=== PATIENT | female | born 1950 | race Caucasian/White ===

== ENCOUNTER 2017-02-25 11:19 | Outpatient (CLI) | payer MEDICARE, OTHER ==
[2017-02-25 11:59] LABS: BASOPHILS % 0.5 (0.0-1.5); EOSINOPHILS % 5.2 % (0.0-6.8); LYMPHOCYTES # 1.5 # k/uL (0.6-4.0); MEAN CORPUSCULAR HEMOGLOBIN 28.8 pg (28.0-34.0); MONOCYTES # 0.6 # k/uL (0.0-0.9); MONOCYTES % 7.4 % (0.0-11.0); NEUTROPHILS # 5.7 # k/uL (1.4-7.7)
[2017-02-25 12:41] LABS: eGFR (African) > 60; eGFR (Non-African) > 60
[2017-02-25 22:31] LABS: TRANSFERRIN 244 mg/dL (200-360)
[2017-02-25 22:41] LABS: SERUM IRON 39 ug/dL (37-145)
== END 2017-02-25 11:20 ==
LOC: LAB 11:19
PROVIDERS: ATTEND Nurse Practitioner
DX: E11.9 Type 2 diabetes mellitus without complications (principal); I10 Essential (primary) hypertension; E78.5 Hyperlipidemia, unspecified; G62.9 Polyneuropathy, unspecified; J45.909 Unspecified asthma, uncomplicated; M54.9 Dorsalgia, unspecified; R25.1 Tremor, unspecified
CPT/HCPCS: 36415; 80053; 82728; 83036; 83540; 83550; 84466; 85025

== ENCOUNTER 2017-03-02 11:24 | Outpatient (CLI) | payer MEDICARE, OTHER ==
[2017-03-02 12:03] LABS: APPEARANCE,URINE Cloudy (CLEAR); COLOR,URINE Yellow (YELLOW); OCCULT BLOOD,URINE Negative (NEGATIVE); PH URINE 5.5 (5.0 - 8.0)
== END 2017-03-02 11:25 ==
LOC: LAB 11:24
PROVIDERS: ATTEND Nurse Practitioner
DX: N39.0 Urinary tract infection, site not specified (principal)
CPT/HCPCS: 81002; 87086

== ENCOUNTER 2017-09-10 14:57 | Outpatient (CLI) | payer MEDICARE, OTHER ==
[2017-09-10 15:19] LABS: BASOPHILS % 0.7 (0.0-1.5); EOSINOPHILS % 4.6 % (0.0-6.8); MEAN CORPUSCULAR HEMOGLOBIN 27.7 pg (28.0-34.0); MEAN CORPUSCULAR VOLUME 87.2 fl (80.0-100.0); MONOCYTES % 5.9 % (0.0-11.0); NEUTROPHILS # 6.3 # k/uL (1.4-7.7)
[2017-09-10 15:50] LABS: eGFR (African) > 60; eGFR (Non-African) > 60
== END 2017-09-10 15:00 ==
LOC: LAB 14:57
PROVIDERS: ATTEND Internal Medicine
DX: L03.115 Cellulitis of right lower limb (principal); I15.9 Secondary hypertension, unspecified
CPT/HCPCS: 36415; 80048; 85025

== ENCOUNTER 2017-09-16 10:09 | Outpatient (CLI) | payer MEDICARE, OTHER ==
[~2017-09-16 10:09] MED LIST: IRON SUCROSE COMPLEX IV SCH; SODIUM CHLORIDE 0.9% IV SCH
[2017-09-16] MEDS ORDERED: SALINE FLUSH 10 ML DISP.SYRIN IVF ONE (11:00)
[2017-09-16] MEDS ORDERED: IRON SUCROSE COMPLEX 20 MG/ML 10ML VIAL IV ONE (11:00)
[2017-09-16] MEDS ORDERED: 0.9 % SODIUM CHLORIDE 100 ML IV.SOLN IV ONE (11:00)
== END 2017-09-16 10:10 ==
LOC: INF 10:09
PROVIDERS: ATTEND Nurse Practitioner
DX: D50.9 Iron deficiency anemia, unspecified (principal)
CPT/HCPCS: 96365; J1756; S1016

== ENCOUNTER 2017-09-23 09:37 | Outpatient (CLI) | payer MEDICARE, OTHER ==
[2017-09-23] MEDS ORDERED: IRON SUCROSE COMPLEX IV SCH (10:00)
[2017-09-23] MEDS ORDERED: SODIUM CHLORIDE 0.9% IV SCH (10:00)
[2017-09-23] MEDS ORDERED: IRON SUCROSE COMPLEX 20 MG/ML 10ML VIAL IV ONE (11:00)
[2017-09-23] MEDS ORDERED: SALINE FLUSH 10 ML DISP.SYRIN IVF ONE (11:00)
[2017-09-23] MEDS ORDERED: 0.9 % SODIUM CHLORIDE 50 ML IV.SOLN IV ONE (11:00)
== END 2017-09-23 09:40 ==
LOC: INF 09:37
PROVIDERS: ATTEND Nurse Practitioner
DX: D50.9 Iron deficiency anemia, unspecified (principal)
CPT/HCPCS: 96365; J1756; S1016

== ENCOUNTER 2017-09-30 10:27 | Outpatient (CLI) | payer MEDICARE, OTHER ==
[2017-09-30] MEDS ORDERED: SODIUM CHLORIDE 0.9% IV SCH (11:00)
[2017-09-30] MEDS ORDERED: IRON SUCROSE COMPLEX IV SCH (11:00)
[2017-09-30] MEDS ORDERED: 0.9 % SODIUM CHLORIDE 100 ML IV.SOLN IV ONE (12:00)
[2017-09-30] MEDS ORDERED: SALINE FLUSH 10 ML DISP.SYRIN IVF ONE (12:00)
[2017-09-30] MEDS ORDERED: IRON SUCROSE COMPLEX 20 MG/ML 10ML VIAL IV ONE (12:00)
== END 2017-09-30 10:30 ==
LOC: INF 10:27
PROVIDERS: ATTEND Nurse Practitioner
DX: D50.9 Iron deficiency anemia, unspecified (principal)
CPT/HCPCS: 96365; J1756; S1016

== ENCOUNTER 2018-03-16 13:50 | Outpatient (CLI) | payer MEDICARE, OTHER ==
[2018-03-16 14:16] LABS: EOSINOPHILS % 9.9 % (0.0-6.8); MEAN CORPUSCULAR HEMOGLOBIN 30.2 pg (28.0-34.0); MEAN CORPUSCULAR VOLUME 94.1 fl (80.0-100.0); MONOCYTES % 5.2 % (0.0-11.0); NEUTROPHILS # 5.9 # k/uL (1.4-7.7)
[2018-03-16 14:49] LABS: eGFR (African) > 60; eGFR (Non-African) > 60
[2018-03-16 23:51] LABS: TRANSFERRIN 254 mg/dL (200-360)
[2018-03-17 00:11] LABS: SERUM IRON 81 ug/dL (37-145)
== END 2018-03-16 13:52 ==
LOC: LAB 13:50
PROVIDERS: ATTEND Nurse Practitioner
DX: E11.9 Type 2 diabetes mellitus without complications (principal); D50.9 Iron deficiency anemia, unspecified; I10 Essential (primary) hypertension; E78.5 Hyperlipidemia, unspecified; G62.9 Polyneuropathy, unspecified; J45.909 Unspecified asthma, uncomplicated; R41.2 Retrograde amnesia
CPT/HCPCS: 36415; 80053; 82728; 83036; 83540; 83550; 84466; 85025

== ENCOUNTER 2018-06-01 12:56 | Outpatient (CLI) | payer MEDICARE, OTHER ==
[2018-06-01 13:28] LABS: BASOPHILS % 0.8 (0.0-1.5); EOSINOPHILS % 9.7 % (0.0-6.8); MEAN CORPUSCULAR HEMOGLOBIN 28.2 pg (28.0-34.0); MEAN CORPUSCULAR VOLUME 89.6 fl (80.0-100.0); MONOCYTES % 4.2 % (0.0-11.0); NEUTROPHILS # 6.7 # k/uL (1.4-7.7)
[2018-06-01 13:58] LABS: APPEARANCE,URINE CLOUDY (CLEAR); COLOR,URINE YELLOW (YELLOW); OCCULT BLOOD,URINE TRACE-INTACT (NEGATIVE); PH URINE 5.5 (5.0 - 8.0); UROBILINOGEN URINE 0.2 Eu (0.2-1.0)
[2018-06-01 14:05] LABS: eGFR (African) > 60; eGFR (Non-African) > 60
[2018-06-03 17:11] LABS: ANTI-PR3 (C-ANCA) <4.0 EU/mL (<4.0)
== END 2018-06-01 12:58 ==
LOC: LAB 12:56
PROVIDERS: ATTEND Dermatology
DX: Z79.899 Other long term (current) drug therapy (principal)
CPT/HCPCS: 36415; 80053; 81002; 82595; 82784; 83516; 84155; 84165; 85025; 85651; 86038; 86140; 86160; 86704; 86706; 86803; 87340

== ENCOUNTER 2018-08-24 15:57 | Emergency (ER) | payer MEDICARE, OTHER ==
--- NOTE | 2018-08-24 16:24 | ED Physician Documentation ---
General Adult - VITAL SIGNS Vital Signs: Vital Signs Temp Pulse Resp BP Pulse Ox 98.6 F 64 16 143/74 99 08/24/18 20:30 08/24/18 20:30 08/24/18 20:30 08/24/18 20:30 08/24/18 20:30 <Hyacinth Abad - Last Filed: 08/25/18 00:14> - HISTORIAN Historian: patient - HPI Chief Complaint: Lower Extremity Problem Additional Information: Patient states that she dislocated her right hip.Patient was leaning over to pull socks up and felt the hip go out. Had hip replace in Dec of this year. Was doing well until about 5-6 weeks dislocated her hip after falling. No numbness ot the leg noted. Onset: minutes Timing: still present Severity: mild Further Comments: yes (Recently finished IV antibiotics for open wounds on her legs.) - ROS CONST: no problems. denies: fever, chills - PAST HX Past History: asthma, other (vasculitis, open wound to the legs, Htn, DM, ) Other History: diabetes Type 2 Surgeries/Procedures: hysterectomy, other (s/r right hip, nerve decompression in giuseppe left foot. 4th right toe amputated. ) - SOCIAL HX Smoking History: non-smoker Alcohol Use: rarely Drug Use: none - FAMILY HX Family History: Yes (brother DM, mother CAD. ) - REVIEWED ASSESSMENTS Nursing Assessment Reviewed: Yes Vitals Reviewed: Yes <Marc Day - Last Filed: 08/25/18 07:01> - PAST HX Allergies/Adverse Reactions: Allergies Allergy/AdvReac Type Severity Reaction Status Date / Time diphenhydramine HCl AdvReac Intermediate Hives Verified 08/24/18 16:48 [From Benadryl] Sulfa (Sulfonamide AdvReac Intermediate Hives Verified 08/24/18 16:48 Antibiotics) Home Medications: Ambulatory Orders Medication Instructions Recorded Aspirin 81 mg PO DAILY u2 11/02/14 Atorvastatin Calcium [Lipitor] 40 mg PO DAILY u2 11/02/14 Furosemide [Lasix] 40 mg PO TUTH9 u2 11/02/14 Gabapentin 1,200 mg PO TID av 11/02/14 Metformin HCl [Glucophage] 1,000 mg PO D #180 u2 11/02/14 Omeprazole 20 mg PO DAILY 11/02/14 Oxycodone HCl/Acetaminophen 1 each PO Q4 PRN u2 11/02/14 [Oxycodone-Acetaminophen 10-325] Potassium Chloride 20 meq PO DAILY u2 11/02/14 Cetirizine HCl [Zyrtec] 10 mg PO D 08/24/18 Diclofenac Sodium 75 mg PO BID 08/24/18 Folic Acid 1 mg PO D 08/24/18 L. Rhamnosus GG/Inulin [Culturelle See Protocol PO D 08/24/18 Capsule] Lisinopril/Hydrochlorothiazide 1 tab PO D 08/24/18 [Zestoretic] Methotrexate [Xatmep] 3 tab PO D 08/24/18 Metoprolol Succinate 50 mg PO D 08/24/18 Oxybutynin Chloride [Ditropan] 5 mg PO BID 08/24/18 Prednisone 50 mg PO D 08/24/18 Pregabalin [Lyrica] 75 mg PO BID 08/24/18 Progress - Progress Progress: 18:30 Having a hard time getting an IV established. 18:45 IV established. Patient was bolused with 750cc NS in preparation of conscious sedation. Patient was started on supplemental oxygen, ward service supervisor to compliance monitor and BP was monitored. Consent form was signed after being advised to the risk and benefits of conscious sedation. Patient was given propofol 20mg every 10 seconds for a total of 120mg for sedation. Hip was flexed to 90 degrees and pulled anteriorly until leg length was equal. Post reduction x-ray showed the hip to be in normal alignment. Patient tolerated procedure, VS remained stable. Splint applied. <Marc Day - Last Filed: 08/25/18 07:01> ED Results Lab/Radiology - Orders Orders: ED Orders Category Date Time Status Place IV Lock 1T Care 08/24/18 16:29 Active RT HIP 2VIEW COMPLETE [RAD] Routine Exams 08/24/18 Completed RT HIP 2VIEW COMPLETE [RAD] Routine Exams 08/24/18 Taken 0.9 % Sodium Chloride [Normal Saline] 1,000 ml Med 08/24/18 18:52 Discontinued IV .STK-MED 0.9 % Sodium Chloride [Normal Saline] 500 ml Med 08/24/18 19:00 Discontinued IV .Q1H Ketorolac Tromethamine [Toradol] Med 08/24/18 16:29 Discontinued 30 mg IVP NOW ONE Propofol [Diprivan] Med 08/24/18 19:54 Discontinued 40 mg IV NOW ONE Propofol [Diprivan] Med 08/24/18 19:16 Discontinued 80 mg IV NOW ONE <AbadHyacinth - Last Filed: 08/25/18 00:14> - Radiology Radiology Impressions: Right hip History: Dislocation Two views of the right hip were obtained which demonstrate posterior and super ior dislocation of the right hip prosthesis. The prosthetic components remain intact and no fracture is noted. Impression: Posterior and superior dislocation of the right hip prosthesis. Right hip 2 views Date of Exam: August 24, 2018. History: POST REDUCTION, DISLOCATION (Hx) / ITS.REASON dislocation Findings: Comparison with the earlier study demonstrates reduction of the right hip dislocation. The femoral component now appears positioned within the acetabular Impression: Reduction of right hip dislocation. <DayMarc - Last Filed: 08/25/18 07:01> General Adult Physical Exam - PHYSICAL EXAM GENERAL APPEARANCE: mild distress EENT: eye inspection normal, ENT inspection normal NECK: normal inspection. No: lymphadenopathy RESPIRATORY: no resp distress, chest non-tender, breath sounds normal. No: wheezes, rales, rhonchi CVS: reg rate & rhythm, heart sounds normal, equal pulses, no murmur SKIN: warm/dry, normal color EXTREMITIES: other (RLE shortened some. posterior fullness to the hip. Post reduction hip was normal to palpation. ) NEURO: oriented X3, CN's nml as tested, motor nml, sensation nml, cognition normal <DayMarc - Last Filed: 08/25/18 07:01> Discharge <Hyacinth Abad - Last Filed: 08/25/18 00:14> Decision to Admit: NO Date of Decison to Admit: 08/24/18 Decision Time: 18:29 <DayMarc - Last Filed: 08/25/18 07:01> Clincal Impression: Hip dislocation, right Qualifiers: Encounter type: initial encounter Qualified Code(s): S73.004A - Unspecified dislocation of right hip, initial encounter Referrals: Felicitas Washington FNP [Primary Care Provider] - 2 Days Additional Instructions: Wear brace. Contact orthopedic physician about further care. Avoid bring leg cross your midline. Condition: Stable Disposition: 01 HOME, SELF-CARE
[2018-08-24] MEDS ORDERED: KETOROLAC TROMETHAMINE 30 MG/1ML VIAL IVP ONE (16:29)
--- NOTE | 2018-08-24 17:50 | Diagnostic Imaging Report ---
BRITTNEY BLAIR [facility] [address] [facility] [address] [address] Report Submission Date: Aug 24, 2018 5:36:59 PM CDT Patient Study Name: HUMAIRA ARREDONDO Date: Aug 24, 2018 5:06:56 PM CDT Modality Type: DX Gender: F Description: PELVIS : 52 Institution: [facility] Physician: BRITTNEY BLAIR Right hip History: Dislocation Two views of the right hip were obtained which demonstrate posterior and superior dislocation of the right hip prosthesis. The prosthetic components remain intact and no fracture is noted. Impression: Posterior and superior dislocation of the right hip prosthesis. Electronically signed on Aug 24, 2018 5:36:59 PM CDT by: Naida WILLSON
[2018-08-24] MEDS ORDERED: 0.9 % SODIUM CHLORIDE 1,000 ML IV ONE (18:52)
[2018-08-24] MEDS ORDERED: 0.9 % SODIUM CHLORIDE 500 ML IV SCH (19:00)
[2018-08-24] MEDS ORDERED: PROPOFOL 200 MG/20 ML VIAL IV ONE ×2 (19:16→19:54)
[2018-08-24 21:05] VITALS: BP 143/74
--- NOTE | 2018-08-25 06:57 | Diagnostic Imaging Report ---
BRITTNEY BLAIR [facility] [address] [facility] [address] [address] Report Submission Date: Aug 24, 2018 8:07:52 PM CDT Patient Study Name: HUMAIRA ARREDONDO Date: Aug 24, 2018 7:47:15 PM CDT Modality Type: DX Gender: F Description: PELVIS : 52 Institution: [facility] Physician: BRITTNEY BLAIR Right hip 2 views Date of Exam: August 24, 2018. History: POST REDUCTION, DISLOCATION (Hx) / ITS.REASON dislocation Findings: Comparison with the earlier study demonstrates reduction of the right hip dislocation. The femoral component now appears positioned within the acetabular Impression: Reduction of right hip dislocation. Electronically signed on Aug 24, 2018 8:07:52 PM CDT by: Tia WILLSON
== END 2018-08-24 20:30 | disposition home or self-care (01) ==
LOC: ED 15:57
DX: S73.004A Unspecified dislocation of right hip, initial encounter (principal); Z96.641 Presence of right artificial hip joint; X58.XXXA Exposure to other specified factors, initial encounter; Y92.9 Unspecified place or not applicable; Y93.9 Activity, unspecified; Y99.9 Unspecified external cause status
CPT/HCPCS: 73502; 96365; 96375; 99284; 99285; J2704; J7030; 27266; S1016

== ENCOUNTER 2018-09-23 10:07 | Outpatient (CLI) | payer MEDICARE, OTHER ==
[2018-09-23] MEDS ORDERED: IRON SUCROSE COMPLEX 300 MG in 0.9 % SODIUM CHLORIDE 250 ML IV ONE (11:00)
[2018-09-23] MEDS ORDERED: SALINE FLUSH 10 ML DISP.SYRIN IVF ONE (12:50)
[2018-09-23] MEDS ORDERED: 0.9 % SODIUM CHLORIDE 250 ML IV.SOLN IV ONE (12:50)
[2018-09-23] MEDS ORDERED: IRON SUCROSE COMPLEX 20 MG/ML 10ML VIAL IV ONE (12:50)
== END 2018-09-23 12:00 ==
LOC: INF 10:07
PROVIDERS: ATTEND Nurse Practitioner
DX: D50.9 Iron deficiency anemia, unspecified (principal); I10 Essential (primary) hypertension; R60.9 Edema, unspecified; K21.0 Gastro-esophageal reflux disease with esophagitis; E78.5 Hyperlipidemia, unspecified; G62.9 Polyneuropathy, unspecified
CPT/HCPCS: J1756; J7050; 96365; S1016

== ENCOUNTER 2018-10-01 09:18 | Outpatient (CLI) | payer MEDICARE, OTHER ==
[2018-10-01] MEDS ORDERED: SALINE FLUSH 10 ML DISP.SYRIN IVF ONE ×2 (10:00)
[2018-10-01] MEDS ORDERED: IRON SUCROSE COMPLEX 20 MG/ML 5ML VIAL IV ONE ×5 (10:00→11:00)
[2018-10-01] MEDS ORDERED: IRON SUCROSE COMPLEX 300 MG in 0.9 % SODIUM CHLORIDE 250 ML IV ONE (10:00)
== END 2018-10-01 09:20 ==
LOC: INF 09:18
PROVIDERS: ATTEND Nurse Practitioner
DX: D50.9 Iron deficiency anemia, unspecified (principal); I10 Essential (primary) hypertension; R60.9 Edema, unspecified; K21.0 Gastro-esophageal reflux disease with esophagitis; E78.5 Hyperlipidemia, unspecified; G62.9 Polyneuropathy, unspecified
CPT/HCPCS: 96365; 96366; J1756

== ENCOUNTER 2018-10-11 09:58 | Outpatient (CLI) | payer MEDICARE, OTHER ==
[2018-10-11] MEDS ORDERED: IRON SUCROSE COMPLEX 20 MG/ML 5ML VIAL IV ONE ×3 (10:30→11:00)
[2018-10-11] MEDS ORDERED: SALINE FLUSH 10 ML DISP.SYRIN IVF ONE (10:42)
[2018-10-11] MEDS: IRON SUCROSE COMPLEX 300 MG in 0.9 % SODIUM CHLORIDE 250 ML IV ONE (12:41)
[2018-10-11] MEDS: SALINE FLUSH 10 ML DISP.SYRIN IVF ONE (12:42)
== END 2018-10-11 10:03 | disposition home or self-care (01) ==
LOC: INF 09:58
PROVIDERS: ATTEND Nurse Practitioner
DX: D50.9 Iron deficiency anemia, unspecified (principal)
CPT/HCPCS: 96365; J1756; J7050; S1016

== ENCOUNTER 2019-07-06 12:24 | Outpatient (CLI) | payer MEDICARE, OTHER ==
--- NOTE | 2019-07-07 13:10 | Diagnostic Imaging Report ---
ELPIDIO MITCHELL [facility] [address] [facility] [address] [address] Report Submission Date: Jul 07, 2019 12:22:24 PM CDT Patient Study Name: HUMAIRA ARREDONDO Date: Jul 06, 2019 12:28:27 PM CDT Modality Type: DX Gender: F Description: TOES 2 VIEWS OR MORE : 52 Institution: [facility] Physician: ELPIDIO MITCHELL TOES LEFT HISTORY: SKIN ULCER OF 2ND DIGIT, WOUND DIP JOINT. FINDINGS: Marked soft tissue swelling of the 2nd digit is seen. Dorsal lateral subluxation of the 2nd middle phalanx in relationship to the proximal phalanx is seen with old avulsion fracture present. No evidence of bony erosion is seen to suggest osteomyelitis. Degenerative changes of the great toe are present but no other bony abnormality is seen in the digits included on the study. IMPRESSION: Soft tissue swelling 2nd digit with subluxation at the PIP joint. No evidence of osteomyelitis seen. Electronically signed on Jul 07, 2019 12:22:24 PM CDT by: Elías WILLSON
== END 2019-07-06 12:26 ==
LOC: RAD 12:24
PROVIDERS: ATTEND Podiatrist Foot & Ankle Surgery
DX: L97.529 Non-pressure chronic ulcer of other part of left foot with unspecified severity (principal); E11.9 Type 2 diabetes mellitus without complications
CPT/HCPCS: 73660

== ENCOUNTER 2019-07-14 10:59 | Outpatient (CLI) | payer MEDICARE, OTHER ==
--- NOTE | 2019-07-18 15:32 | OP Clinic Progress Note ---
DATE OF VISIT: 07/14/2019 SUBJECTIVE: Michelle is a 68-year-old female who presents for followup today after being seen recently on the 7th in the [facility] for a left second toe hammertoe and ulcer. The patient since that visit has discussed with her [facility] about switching her care of her ulcer on her right leg over to me and she would like to begin seeing me to see if we can get some further improvement. She does admit today that she has had this wound for several months at least and that she has had definitely some improvement. She stated that the right leg ulcer began as several small lesions with a red circular border and a deep center that converged and created a larger wound. 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 The patient states that she therefore has some sort of vasculitis. The patient has several pairs of compression stockings that she does not use. The patient has been doing dressing changes on her own at home for quite some time on her right leg outside of the wound clinic. The patient has type 2 diabetes mellitus as well which is definitely of note for her. She denies any sort of infection in the right leg ulcer at any time. She is not sure if she has had infection on the left second toe, but she definitely has had it open and closed multiple times according to her. Last visit she suggested that she had an infection in the left second toe before, but today she states she is not sure. She does not admit to any fever, chills, nausea, vomiting, shortness of breath or chest pain. She was able to obtain a Crest pad and is using it on the left foot to offload the left second toe ulcer. She had x-rays performed recently and is here to discuss those today as well and how they were negative for any sign of infection, that was discussed as well. OBJECTIVE: Vitals: Temperature 98.8, heart rate 59, respiration rate 18, blood pressure 154/78. O2 sat 98% on room air. Vascular: 2+ DP and PT pulses, bilateral feet. Capillary refill time less than 3 seconds to the toes bilaterally. There is moderate edema still noted on bilateral lower extremities, right is slightly more. The left lower extremity is more mild. Dermatologic: The patient has a large right anteromedial leg ulcer noted about one third to half way down the lower leg on the right. This wound has a yellow slough base with a mix of granular and fibrotic base. There is no erythema or purple discoloration noted on the edges of the wound. The wound definitely has almost more of a punched out lesion that would suggest an arterial issue, but I believe this is more due to the vasculitis that it has this appearance. Her blood flow is obviously beautiful. This wound is measuring today at 8.6 x 3.1 x 0.3 cm deep. We will watch this carefully. The left second toe also has a small wound and slight hyperkeratotic tissue that was debrided today, measuring at 0.1 x 0.1 x 0.1 cm deep. This has definitely improved from our last visit where it measured 0.5 x 0.5 x 0.4 cm deep. There was no erythema noted. There is definitely some edema noted, but some of this may be due to the dislocation at the nearby joint. There is no probe to bone and this does not undermine. There is no suggestion of warmth or infection. The left lower leg distal anteriorly has a very small open lesion noted that the patient is concerned as what seems to have started the issue on the right leg wound. There is no erythema or purulence or malodor noted from this wound. There is very mild serous drainage. Musculoskeletal: There is some pain on palpation and with debridement of the right anteromedial leg ulcer. The patient has a laterally angulated left second toe at the PIPJ causing the medial side of the DIPJ to be on the ground when she walks. This has created an ulcer in that area. There is very minimal if any pain on palpation of this area. There are no other significant gross abnormalities noted. Neurologic: Light touch sensation is diminished to the toes bilaterally. 5.07 [place] Becky monofilament test is negative at the forefoot and toes at the right and negative to the entire left plantar and dorsal foot. This is from a previous exam. There is therefore significant neuropathy. ASSESSMENT AND PLAN: 1. Skin ulcer second toe left with unspecified severity, L97.529. 2. Hammertoes of both feet, M20.41 and M20.42. 3. Diabetes mellitus, E11.9. 4. Right lower leg venous insufficiency/vasculitis ulcer. 5. 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 6. Peripheral neuropathy. PROCEDURE #1: Sharp debridement of left 2 and including subcutaneous tissue greater than 20 sq cm to and including the subcutaneous tissue with a curette performed to the right lower leg ulcer. The patient tolerated the procedure well. There was mild bleeding. This was controlled with pressure. Dressings were applied consisting of Medihoney, Adaptic, 4x4 gauze and ABD pad and a Kerlix wrap. PROCEDURE #2: Sharp debridement of the left second toe ulcer with #15 blade to the subcutaneous tissue layer. This was dressed with triple antibiotic ointment and a Band-Aid and the crest pad was reapplied to help hold if off the ground to offload it. PROCEDURE #3: Four layer compression wrap was applied to the right lower extremity to keep swelling down and allow this to heal more appropriately. The patient definitely had some pitting edema noted and this will help keep the swelling down. She is to leave the dressings alone and keep them clean and dry. We were able to also apply two layers of Amador wrap, one 4 inch and one 6 inch to the left lower extremity and the patient was encouraged to continue using this or compression stockings from home to keep the swelling down in the left lower extremity to disallow the left lower leg anterior distal small ulcer from worsening and to help it heal. We discussed with the patient the possibility of home health care coming to do dressing changes with these four layer compression wraps on the right leg etc. twice a week and the patient refuses to have this done at this time if possible. She does not feel she needs to be home bound, which I agree. She is healthy and able to get out and about. We will instead plan on performing nursing visits on Mondays and Fridays where the patient will have the dressings changed and a four layer compression wrap applied as done today. We will plan on having a nursing visit on Thursday and I will plan on seeing the patient on Wednesdays in general and she will come on Fridays also for a nursing visit to outpatient clinic. An order will be placed for these dressings to be changed. The patient has agreed verbally that she can do this. She would much prefer this than doing home health. The patient states [place] [facility], but denies getting in the water at all. She was encouraged to not get in the water at the [facility]. We will have the patient return to clinic in two weeks from yesterday to follow up with me for local wound care and wraps. The patient will see the nurses for nursing visits beginning this next week on Thursday and then on Thursday and we will continue doing that weekly at this time and see me on Wednesdays. We will call the patient and notify her of the plan and we will get her on the schedule for Thursday. Shikha Castro.P.M.(Dictated/not signed) /[employer] [id number] /mab MTDD
== END 2019-07-14 11:30 ==
LOC: POD 10:59
PROVIDERS: ATTEND Podiatrist Foot & Ankle Surgery
DX: L97.529 Non-pressure chronic ulcer of other part of left foot with unspecified severity (principal); M20.42 Other hammer toe(s) (acquired), left foot; E11.40 Type 2 diabetes mellitus with diabetic neuropathy, unspecified; I87.2 Venous insufficiency (chronic) (peripheral)
CPT/HCPCS: 11042; 11045; 29581; 99213; A4554

== ENCOUNTER 2019-07-21 10:04 | Outpatient (CLI) | payer MEDICARE, OTHER ==
--- NOTE | 2019-07-26 13:50 | OP Clinic Progress Note ---
SUBJECTIVE: Michelle Ovalle is a 68-year-old female presenting to clinic today for follow up of a left second toe ulcer and right lower leg ulcer. The patient recently has been seen in [facility] and transferred over to see me for continued wound care of the right leg wound. Upon further questioning, she has been having this wound for three or four years now. She states it has progressed and she has had Apligraf applications x 5, finishing in May, and she states that she has been having continued improvement. She does not feel the wound has stalled and that it has improved with regular wound debridements, etc, that was being done at [facility]. She is only coming here now as it is a convenience issue and would like to see if we can continue to help her here. She recently was placed on methotrexate and is not sure if that is helping her currently. She does not admit to any fevers, chills, nausea, vomiting, shortness of breath or chest pain. She does admit again that she had a biopsy that suggested a vasculitis that sounded like polyarteritis nodosa. She remembered the "nodosa" word. She also has type 2 diabetes mellitus and some peripheral neuropathy. The patient had her feet fitted for diabetic shoes and inserts yesterday. She will obtain those soon and will have the fourth metatarsal head offloaded bilaterally. The patient is doing well offloading the left second toe with pads as well. She does not have any other issues at this time. She states she cannot be seen tomorrow and therefore we need to adjust the plan for this weekend for her wound care. OBJECTIVE: Vitals: Temperature 97.8, heart rate 56, respiration rate 16, blood pressure 123/65. O2 sat is 96% on room air. Vascular: 2+ DP and PT pulses, bilateral feet. CELEBRITY MANAGER less than 3 seconds to the toes bilaterally. There is mild edema noted, bilateral lower extremities. Dermatologic: The left second toe lateral aspect of the PIPJ is with a stable small eschar that has no drainage and no open wound currently. This has improved greatly with getting pressure off the toe. There is no erythema or warmth or any signs of infection noted. The right central medial lower leg ulcer is present with a moderate amount of fibrotic slough that was debrided today to a fairly granular base with a slight purple discoloration edge to the wound. There is no purulence, malodor, erythema or warmth noted. There is very mild bleeding with debridement today. The wound is measuring today at 8.0 x 3.0 x 0.2 cm deep. This is improved from last week when it was measuring 8.6 x 3.1x 0.3 cm deep. She definitely has improvement so far. Musculoskeletal: There is no pain or debridement today after use of the Emla cream that was applied for 30-40 minutes before debridement. The patient does have a laterally angulated left second toe at the PIPJ causing the medial side of the DIPJ to be on the ground when she walks. There are some other hammertoe deformities noted bilateral feet and a right fourth toe amputation that has happened previously. Neurologic: Light touch sensation is diminished to the toes bilaterally. Previous 5.07 [place]-Becky monofilament test was negative at the forefoot and toes on the right and negative to the entire left plantar and dorsal foot from previous exam. ASSESSMENT AND PLAN: 1. Skin ulcer of the left second toe with unspecified severity, L97.529-greatly improved with stable eschar today. Left alone today. 2. Hammertoes both feet, M20.41 and M20.42. 3. Diabetes mellitus type 2, E11.9. 4. Right lower extremity venous insufficiency/vasculitis ulcer. 5. 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 6. Peripheral neuropathy, bilateral lower extremities. PROCEDURE #1: Sharp debridement of the right lower leg ulcer greater than 20 cm2 down to and including subcutaneous tissue with a curette was performed today without incident. The patient tolerated the procedure well. Hemostasis was obtained with pressure. Dressings were applied consisting of Medihoney, Adaptic, 4x4 gauze, ABD pad and Kerlix. The patient then had her CircAid wraps applied at 30 mmHg. She will do one dressing change this weekend, probably on Thursday, with the dressings that we sent home with the patient including Betadine, Adaptic, 4x4 gauze, an ABD pad and Kerlix. The patient has the iodine at home already. We discussed that the patient will do that dressing change as described above and use CircAids this weekend and we will follow up with her for a nursing visit at 3:00 on Thursday with Star and I will see her again next Thursday. The Thursday visit will be at the [facility] and the Thursday visit will be here in outpatient. She will then see Naida on Fridays at approximately 9:00 for a four-layer compression wrap and dressing change by Naida in outpatient clinic. The patient is agreeable to these plans and just cannot do tomorrow, which is why we changed the plan for this weekend. Otherwise, we will do these four- layer compression wraps for two to three weeks and see if we are continuing to get improvement. If not, we will perhaps stop those and look at the possibility of some sort of graft. The patient is improving, however, and we will keep in the back of our mind the idea of a pyogenic gangrenosum due to the violaceous discoloration on the edges of the wound, but she is improving with debridements previously, so I doubt that this is the cause. Return to clinic on Thursday for a 3:00 nursing visit and then Thursday with me in outpatient. The patient has no further questions or concerns. We were able to review her notes from [facility] that were sent over to the clinic to get caught up on what she has had done so far. These include Apligraf treatments x 5, according to the patient, as well as lots of other wound care efforts, CircAid wraps, etc. Sidney Dugan D.P.M. /[employer] [id number] Job #[id number]
== END 2019-07-21 10:35 ==
LOC: POD 10:04
PROVIDERS: ATTEND Podiatrist Foot & Ankle Surgery
DX: M20.41 Other hammer toe(s) (acquired), right foot (principal); M20.42 Other hammer toe(s) (acquired), left foot; E11.40 Type 2 diabetes mellitus with diabetic neuropathy, unspecified; I87.2 Venous insufficiency (chronic) (peripheral); L97.519 Non-pressure chronic ulcer of other part of right foot with unspecified severity
CPT/HCPCS: 11042; 99213; G0463; A4554

== ENCOUNTER 2019-07-27 13:57 | Outpatient (CLI) | payer MEDICARE, OTHER ==
--- NOTE | 2019-08-03 09:08 | OP Clinic Progress Note ---
DATE OF VISIT: 07/27/2019 SUBJECTIVE: Michelle Ovalle is a 68-year-old female presenting to clinic today for followup of a right venous insufficiency ulcer on the right lower leg. She also is here for followup of a left second toe deformity with ulcer. The patient has been using a [place] pad on the left second toe area to off-load it, but she lost it and has a new one ordered and it should be here sooner to begin using it again. She denies any concerns or complaints about that toe and denies any pain there as well. She also states that she feels the right leg ulcer is looking better upon visual exam of her own today. She is having nursing visits generally on Mondays and Fridays and sees me on Wednesdays. The patient does not admit to any fevers, chills, nausea, vomiting, shortness of breath or chest pain. She denies any issues with the four-layer compression wraps and feels that they are doing well so far. OBJECTIVE: Vitals: Temperature 97.8 degrees Fahrenheit, heart rate 68, respiration rate 16, blood pressure 133/82. O2 saturation is 94% on room air. Vascular: 2+ DP and PT pulses bilaterally. Capillary refill time is less than 3 seconds to the toes bilaterally. There is very mild edema noted, bilateral lower extremities. Dermatologic: The left second toe lateral aspect of the DIPJ is still with a very small stable eschar and mild hyperkeratosis that was debrided to an intact stable thin eschar. There is no erythema or warmth or drainage of any kind or any signs of open wound of signs of infection at this time. I am feeling more confident that there are no signs of osteomyelitis underneath this area, as it is healing well. The right central medial lower leg ulcer is present with a moderate amount of yellow fibrotic slough covering the entire base again today of the wound. This was debrided with the curette to and including subcutaneous tissue less than 20 sq cm. There was mild bleeding noted with debridement. There was control of the pressure. There was no erythema around the wound or any warmth or purulence or malodor noted. There was no fluctuance around the wound. The wound around the edges does have a slight perhaps purple discoloration, which may be suggestive of a pyoderma gangrenosum, but I would like to have this confirmed if this is not healing with debridements at this time. We will continue to monitor it carefully. This wound today is measuring at 8.4 x 2.8 x 0.2 cm deep. This is slightly longer, but slightly less wide than previously. Musculoskeletal: There is no pain with debridement today after using the EMLA cream again. The patient has a laterally angulated left second toe still with this especially prominent at the DIPJ causing the medial side of the DIPJ to be on the ground when she is walking. Previously, I mentioned the PIPJ where the wound was and that was by mistake, it is at the DIPJ. It is now stable, eschar is looking great. There are some hammertoe deformities noted bilaterally and a right fourth toe amputation performed previously somewhere else. Neurologic: Light touch sensation is diminished to the toes bilaterally. A 5.07 [place]-Becky monofilament test was negative per previous exam to the forefoot and toes on the right, and negative to the entire left plantar and dorsal foot from previous exam. ASSESSMENT AND PLAN: 1. Skin ulcer of the left second toe with unspecified severity L97.529 - still with a stable eschar today and no wound. 2. Hammertoes both feet, M20.41 and M20.42. 3. Diabetes mellitus type 2, E11.9. 4. Right lower extremity venous insufficiency/vasculitis ulcer. 5. 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 6. Peripheral neuropathy bilateral lower extremities. PROCEDURE #1: Sharp debridement of the right lower leg ulcer was performed down to and including the subcutaneous tissue layer with a curette less than 20 sq cm. Hemostasis was obtained with pressure. Dressings were applied consisting of Santyl, Adaptic, 4x4 gauze and a Kerlix roll. PROCEDURE #2: A four-layer compression wrap was then applied to the right lower extremity. This is done per normal instructions. The patient will leave this intact until she is seen in clinic on Thursday for a nursing visit where she will have the dressing replaced at that time. The patient has no further questions or concerns and knows that the plan is for her to have a nursing visit on Thursday and then on Day, Thursday, she will do a dressing change on her own as discussed with antibiotic ointment on the wound base followed by Adaptic, which we sent home with the patient, gauze and a Kerlix roll followed by her CircAid wraps that are measured at 30 mmHg. The patient then will see me again on when she is back in town and we will do normal dressings, etc. She will then be seen the following Thursday for a regular nursing visit, as well as Thursday and Thursday for nursing visits, as I will be out of town that week. She will then have a following week normal Thursday and Thursday nursing visit and see me on Thursday. The patient has no further questions and we will re-visit that plan at our next visit. Portia CastroP.M.(Dictated/not signed) /Accutype [id number] /mab MTDD
== END 2019-07-27 14:27 ==
LOC: POD 13:57
PROVIDERS: ATTEND Podiatrist Foot & Ankle Surgery
DX: E11.40 Type 2 diabetes mellitus with diabetic neuropathy, unspecified (principal); E11.621 Type 2 diabetes mellitus with foot ulcer; L97.529 Non-pressure chronic ulcer of other part of left foot with unspecified severity; M20.41 Other hammer toe(s) (acquired), right foot; M20.42 Other hammer toe(s) (acquired), left foot; I87.2 Venous insufficiency (chronic) (peripheral); L95.9 Vasculitis limited to the skin, unspecified
CPT/HCPCS: 11042; 29581; 99213; G0463; A4554

== ENCOUNTER 2019-08-04 11:06 | Outpatient (CLI) | payer MEDICARE, OTHER ==
--- NOTE | 2019-08-10 08:35 | OP Clinic Progress Note ---
DATE OF VISIT: 08/04/2019 SUBJECTIVE: Michelle Ovalle is a 68-year-old female presenting to clinic for follow up of a right lower extremity ulcer and a left second toe ulcer. The patient was on vacation recently and has been doing her own wraps with CircAid compression as well. The patient does not admit to any issues at this time and believes that her leg is getting better. She does admit that a couple of days ago she had some really dark purple, almost black discoloration around the edges of the wound, but states that it is looking much better today versus a couple of days ago. She is ready to begin four layer compression wraps again and having them done three times a week going forward. She admits that she has been having regular debridements of the wound base for a long time even at the wound clinic in [place] before seeing me and states that the wound was healing and improving at that time. She does not admit to any fevers, chills, nausea, vomiting, shortness of breath or chest pain. OBJECTIVE: Vitals: Temperature 98.1 degrees Fahrenheit, heart rate 81, respiration rate 18, blood pressure 133/74. O2 saturation is 96% on room air. Vascular: 2+ DP and PT pulses, bilaterally. Capillary refill time is less than 3 seconds to the toes bilaterally. There is mild edema noted, bilateral lower extremities. Dermatologic: Left second toe lateral aspect of the DIPJ is with a small stable eschar at this time and this was left alone as there is no erythema, warmth, drainage of any kind. The right lower leg ulcer on the anterior medial portion of the leg is noted today to have the similar yellow fibrotic slough that was debrided today to a very only mildly bleeding base. The skin edges are of a slight almost purple discoloration and with a lot of telangiectatic type purple discoloration around the edges. There is no purulence or malodor or erythema noted. The wound is measuring today on the right lower leg at 7.6x2.7x0.1 cm deep. This is much improved from last time where it was 8.4x2.8x0.2 cm deep. There are no other skin lesions or concerns noted. Musculoskeletal: There is mild pain with debridement. The patient has no other gross abnormalities noted. Neurologic: Light touch sensation is diminished to the toes bilaterally. Per previous exam 5.07 [place]-Becky monofilament test was negative to the forefoot and toes on the right and to the entire plantar and dorsal foot on the left. That was a previous exam note. ASSESSMENT AND PLAN: 1. Skin ulcer of the left second toe with unspecified severity, L97.529, still with stable eschar and no wound, left alone today. 2. Right lower extremity venous insufficiency/vasculitis ulcer. 3. Hammertoes both foot, M20.41 and M20.42. 4. Diabetes mellitus type 2, E11.9. 5. Peripheral neuropathy bilateral lower extremities. 6. 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 PROCEDURE #1: Sharp debridement of the right lower leg ulcer was performed down to and including the subcutaneous tissue layer with a curette less than 20 sq cm. Hemostasis was obtained with pressure. Dressings were applied today consisting of Santyl, Adaptic, 4x4 gauze and a Kerlix roll. PROCEDURE #2: Four layer compression wrap was then applied to the right lower extremity per normal protocol. The patient will leave this clean, dry and intact until Thursday when she will see Mark, Thursday and Thursday for dressing changes as performed today and then Thursday by Naida where she will have dressing change performed there. She will then see Star again on the following Thursday and I will see her on that week Thursday, which is two weeks from yesterday. The patient tolerated the procedures well. The patient's left second toe appears to be very well healed except for a very small stable eschar, which was left alone. There is no erythema or warmth or signs of infection or real concern for osteomyelitis at this time. The patient has no further questions and seems to be ready to go forward with regular four layer compression wraps to get this healing. I am still keeping a possible differential diagnosis of pyoderma gangrenosum, which is possible given the appearance of the wound. However, the wound is continuing to heal with serial debridements and therefore I am willing to continue doing so as we are getting improvement. We will see how the patient does over the next two weeks as I will not be able to debride her next week. We will consider a biopsy if she does not continue to improve at some point. Shikha Castro.P.M.(Dictated/not signed) /Accutype [id number] /mab MTDD
== END 2019-08-04 11:36 ==
LOC: POD 11:06
PROVIDERS: ATTEND Podiatrist Foot & Ankle Surgery
DX: E11.621 Type 2 diabetes mellitus with foot ulcer (principal); L97.529 Non-pressure chronic ulcer of other part of left foot with unspecified severity; I87.2 Venous insufficiency (chronic) (peripheral); E11.42 Type 2 diabetes mellitus with diabetic polyneuropathy; M20.41 Other hammer toe(s) (acquired), right foot; M20.42 Other hammer toe(s) (acquired), left foot; L95.9 Vasculitis limited to the skin, unspecified
CPT/HCPCS: 11042; 29581; 99212; G0463; A4554

== ENCOUNTER 2019-08-17 14:35 | Outpatient (CLI) | payer MEDICARE, OTHER ==
--- NOTE | 2019-08-22 08:21 | OP Clinic Progress Note ---
DATE OF VISIT: 08/17/2019 SUBJECTIVE: Michelle Ovalle is a 68-year-old female presenting to clinic today for followup of a right lower extremity venous insufficiency ulcer and vasculitis. The patient has had this wound now for over a year and was being treated at the [facility] for awhile as well before coming to see me approximately a month and a half ago. The patient states that it has taken quite awhile to improve and started out quite larger than it is, but it has been very slow to improve. The patient presented today with normal dressings plus a CircAid wrap instead of the four layer compression as I was unable to see her last week and we decided to do that wrap most recently, though we did today too. The patient does not have any other questions or concerns, but is happy to continue using the CircAid wraps as she is using them appropriately. She does admit to the fact that she is taking everything off to go and get in the shower and therefore the wound is getting wet. She also complains of pain in the right foot sub fourth metatarsal head area where she has a pretty good size callus. She would like to have that looked as well today. The patient states that she walks around barefoot a lot at home as well. We encouraged her the importance of being in appropriate shoe gear to keep pressure off the foot. The patient also just received her diabetic shoes with custom inserts with a fourth metatarsal head offloading area that she just received on Thursday. She has had that for one week only. No complaints so far. She does not admit to any fevers, chills, nausea, vomiting, shortness of breath or chest pain. The patient also states that she had an A1c performed about six weeks ago, that was at 5.4%. OBJECTIVE: Vitals: Temperature 97.7, heart rate 70, respiration rate 15, blood pressure 143/76. O2 sat 93% on room air. Vascular: 2+ DP and PT pulses, bilaterally. Capillary refill time less than 3 seconds to the toes bilaterally. There is very mild edema noted, bilateral lower extremities. Dermatologic: We did not visualize the left second toe today as it has had a stable small hyperkeratotic area on the lateral aspect of the DIPJ the last two visits. We will look at this again next week. The right lower leg ulcer today has a little bit less aggressive purple discoloration on the edges. The wound is obviously smaller than last week. It has a yellow fibrous base which was debrided today after applying EMLA cream for about 20 minutes. The wound was debrided and to a good granular improving base measuring today at 7.2 x 2.4 x 0.2 cm deep. This is improved from last week where it measured 7.6 x 2.7 x 0.1 cm deep. The patient also has a significant hyperkeratotic lesion sub fourth metatarsal head which was debrided down today to reveal an open crater type lesion with an ulcer present. This measured today at 1.0 x 1.1 x 0.4 cm deep. There is no erythema or warmth noted at this time or any other signs of infection at this time. This is a new ulcer which we will begin treatment for at this time. Musculoskeletal: There is no pain with debridement today. There is mild pain with debridement of the right sub fourth metatarsal head lesion today. Neurologic: Light touch sensation is diminished to the toes bilaterally. Per previous exam 5.07 [place]-Becky monofilament test was negative at the forefoot and toes on the right and to the entire plantar and dorsal foot left on the previous exam. ASSESSMENT AND PLAN: 1. Diabetic foot ulcer, right sub fourth metatarsal head. 2. Skin ulcer of the left second toe with unspecified severity, L97.529. We will continue to assess next week. 3. Right lower extremity venous insufficiency ulcer/vasculitis. 4. Hammertoes both feet, M20.41 and M20.42. 5. Diabetes mellitus type 2, E11.9. 6. Peripheral neuropathy, bilateral lower extremities. 7. Right leg vasculitis (history of biopsy per patient suggestive of polyarteritis nodosa vasculitis). 8. History of right fourth toe diabetic foot ulcer and amputation. PROCEDURE #1: Sharp debridement of right lower leg ulcer that was performed today down to including the subcutaneous tissue layer with a curette less than 20 sq cm. Hemostasis was obtained with pressure. Dressings were applied today consisting of Santyl, Adaptic, 4x4 gauze, and a Kerlix roll followed by a CircAid wrap and compression stocking. The patient will continue using her CircAid wraps this next week. We will consider whether or not to switch back to a four layer compression wrap on Thursday depending on if we have them in stock at that time or not. That will also be the same for the following Thursday. She will see Naida on Thursday and is to call and get that appointment set up and will see us on Thursday in the [facility]. PROCEDURE #2: Sharp debridement of a diabetic foot ulcer right sub fourth metatarsal head lesion was performed today down to including the subcutaneous tissue layer with a #15 blade. Hemostasis was obtained with pressure. There were no signs of infection. Dressings were applied consisting of triple antibiotic ointment and a Band-Aid. The patient knows that she needs to continue doing antibiotic ointment and the Band-Aid daily to this wound. She is to leave the leg ulcer however, clean, dry and intact. The patient was also told that she is not to be showering with the right lower extremity unless it is covered and protected so that it stays clean, dry and intact. We definitely do not want any part of the right lower leg or foot getting wet due to the wounds that she has. She was disappointed but understands the importance of this. She knows that it is a very large concern for infection if she continues doing what she is doing now. We also discussed with the patient that due to this wound being about a year old or longer and the slow progressive nature of the healing as well as her comorbidities including diabetes mellitus type 2 and a history of diabetic foot ulcer with history of right fourth toe amputation, I believe that she would greatly benefit with a series of graft applications to try and allow and speed up this wounds healing. We discussed with the patient the possibility of obtaining coverage for [employer] EpiFix graft which we will hopefully be able to get covered and begin application weekly beginning next week on Thursday. The patient is very excited about this as it has been so long trying to get this wound to heal. We will continue local wound care for the sub fourth metatarsal head ulcer on the right foot. We will also allow her to use her new diabetic shoes with inserts that have the offloaded fourth metatarsal head region. We will see how she does using those shoes rather than putting her in a surgical shoe with specific offloading of that area. We will plan on seeing the patient for return clinic visit in one week. She will see Naida on Thursday and start on Thursday her nursing visits in the meantime. Sidney Dugan D.P.M.(Dictated/not signed) /Accutype [id number] /mab MTDD
== END 2019-08-17 15:05 ==
LOC: POD 14:35
PROVIDERS: ATTEND Podiatrist Foot & Ankle Surgery
DX: E11.621 Type 2 diabetes mellitus with foot ulcer (principal); L97.519 Non-pressure chronic ulcer of other part of right foot with unspecified severity; L97.529 Non-pressure chronic ulcer of other part of left foot with unspecified severity; E11.40 Type 2 diabetes mellitus with diabetic neuropathy, unspecified; I87.2 Venous insufficiency (chronic) (peripheral); L95.9 Vasculitis limited to the skin, unspecified; M20.41 Other hammer toe(s) (acquired), right foot; M20.42 Other hammer toe(s) (acquired), left foot
CPT/HCPCS: 11042; 99212; G0463; A4554

== ENCOUNTER 2019-08-24 14:57 | Outpatient (CLI) | payer MEDICARE, OTHER ==
--- NOTE | 2019-08-29 16:52 | OP Clinic Progress Note ---
DATE OF VISIT: 08/24/2019 SUBJECTIVE: Michelle Ovalle is a 68-year-old female presenting to clinic today for followup of a diabetic foot ulcer that was new last week, under the fourth metatarsal head of the right foot as well as a diabetic foot ulcer of the left second toe that we have been watching and a right lower extremity venous insufficiency/vasculitis ulcer. Since her last visit, the patient has been having dressing changes done by nursing visits on Thursday and Thursday using CircAid wraps as well. We were able to also obtain approval for 100% coverage of EpiFix 2.0 x 4.0 cm graft from [employer] to begin use of it today. The patient is excited begin this as she has been working on a healing this right lower extremity ulcer for over a year now. The patient does not admit to any fevers, chills, nausea, vomiting, shortness of breath or chest pain. The patient does admit that she was trying to cut her toenails and cut her skin in the same area where the ulcer was located that had a dry scan the last time we looked at it on the left second toe medially. She was not wanting to tell me about it, but we opened up the bandage and looked and she had an open wound there and a loose toenail. The patient has no other questions or concerns and is here for followup. She again does not admit to any fever, chills, nausea, vomiting, shortness of breath or chest pain. OBJECTIVE: Vitals: Temperature 97.9, heart rate 83, respiration rate 16, blood pressure 146/80, O2 sat was 91% on room air. Vascular: 2+ DP and PT pulses bilaterally. Capillary refill time less than 3 seconds to the toes bilaterally. There is mild edema noted bilateral lower extremities. Dermatologic: Right lower leg ulcer was visualized today and noted to have a fair amount of yellow fibrous slough that was debrided to a partly granular base, also with some agranular tissue. It was about 50:50. There was much improved, less purple discoloration around the edge of the wound. The peripheral discoloration was almost absent at this time. There is no erythema, malodor or purulence noted. The wound on the right lower leg was measured today at 7.3 x 2.3 x 0.1 cm deep. This is nearly identical to the measurement last week, which was 7.2 x 2.4 x 0.2 cm deep. The right sub-fourth metatarsal head ulcer has virtually healed since the last visit. There is some hyperkeratotic tissue that was debrided with a pinpoint area that has a very thin layer of epithelium covering a visible pink area. This has no drainage and it is not wet at all. Triple antibiotic ointment was applied to this area. There is no erythema or any warmth or signs of infection or malodor. The left medial second toe was visualized and the previous ulcer site has a good sized ulcer measuring today approximately 0.4 x 0.4 x 0.15 cm deep. There is no erythema around it, but it is bleeding. The edges were cleaned with a #15 blade today and it was dressed today with triple antibiotic ointment and 1 inch Alba and 1 inch Coban. Musculoskeletal: There is no pain on palpation with debridement today. There are no other gross abnormalities noted except for some notable digital contractures and subluxations as the toes go in different directions causing a lot of obvious forefoot pressure on the right foot and on the left foot. Neurologic: Light touch sensation is diminished in the toes bilaterally. Per previous exam 5.07 [place]-Becky monofilament test was negative at the forefoot and toes on the right and to the entire plantar and dorsal left foot. ASSESSMENT AND PLAN: 1. Diabetic foot ulcer, right sub-fourth metatarsal head. 2. Skin ulcer of the left second toe with unspecified severity, L97.529. 3. Right lower extremity venous insufficiency ulcer/vasculitis. 4. Hammertoes both feet, M20.41 and M20.42. 5. Diabetes mellitus type 2, 11.9. 6. Peripheral neuropathy, bilateral lower extremities. 7. Right leg vasculitis (history of biopsy per patient suggestive of polyarteritis nodosa vasculitis). 8. History of right fourth toe diabetic foot ulcer and amputation. PROCEDURE #1: Sharp debridement of the right lower leg ulcer was performed today down to and including subcutaneous tissue layer with a curette greater than 20 sq cm. It should be noted that the note from the left visit should have said greater than 20 sq cm. This hemostasis was controlled with pressure and the site was rinsed with a copious amount of normal saline. It was dried and then the site was prepared for procedure #2. PROCEDURE #2: Graft application of EpiFix 2.0 x 4.0 cm graft with an expiration date of 02/29/2024, bar code number [id number]. This was applied to the wound base and a little bit of saline added to help it stick onto the base. 100% of the graft was applied. This was then covered with Adaptic which was taped down with Steri-Strips on the edges. Hydrofera Blue Foam was then applied over the top of the Adaptic and covered with 4x4 gauze and wrapped in Kerlix beginning on the end of the foot and up to the knee. The rest of the normal dressings were applied with a stocking followed by a CircAid wrap at 40 mmHg followed by her compression stocking that goes at the foot and ankle area, right lower extremity. PROCEDURE #3: Sharp debridement of the left second toe ulcer was performed today down to and including the subcutaneous tissue layer. The bleeding was controlled with pressure. It should be noted that the left second toenail was also very loose and part of the nail was removed by just pulling it off today as it was quite loose. This was also dressed with the same dressings as mentioned above with triple antibiotic ointment, 1 inch Alba and 1 inch Coban on the toe. The patient tolerated the procedure well. The patient had no further questions or concerns. We will plan on having her being seen here for a nursing visit on Thursday and then Thursday the [facility] with a nursing visit and then I will see her again next week on Thursday for a planned repeat graft application. The patient has no further questions and we will plan on seeing her in one week for her return clinic visit. The patient was notified that it is very important that she leave the dressings alone, outside of what the nurses do and when she comes in and she is not able to take off the dressings and shower like she had been previously. She states that she understands this and the reasoning why that cannot happen anymore. She understands that the graft needs to be in place. Portia CastroPBentleyM. (Dictated/not signed) /Accutype [id number] /mab MTDD
== END 2019-08-24 15:32 ==
LOC: POD 14:57
PROVIDERS: ATTEND Podiatrist Foot & Ankle Surgery
DX: E11.621 Type 2 diabetes mellitus with foot ulcer (principal); L97.529 Non-pressure chronic ulcer of other part of left foot with unspecified severity; L97.519 Non-pressure chronic ulcer of other part of right foot with unspecified severity; L95.9 Vasculitis limited to the skin, unspecified; M20.41 Other hammer toe(s) (acquired), right foot; M20.42 Other hammer toe(s) (acquired), left foot; E11.43 Type 2 diabetes mellitus with diabetic autonomic (poly)neuropathy
CPT/HCPCS: 11043; 99212; G0463; A4554

== ENCOUNTER 2019-08-31 14:33 | Outpatient (CLI) | payer MEDICARE, OTHER ==
--- NOTE | 2019-09-14 10:55 | OP Clinic Progress Note ---
DATE OF VISIT: 08/31/2019 SUBJECTIVE: Michelle Ovalle presents today for followup of a venous insufficiency ulcer on the right lower extremity. The patient has had this wound for over a year and last week had her first EpiFix graft applied. Per report from the nurse from the Thursday visit last week, the patient stated that she took a shower and therefore with concern that it might have gotten wet, the nurse removed the dressing completely and cleansed it and reapplied a dressing. The patient did not show up for a visit on Thursday, as she has called stating that she was late and was given an option to come a little bit later in the early afternoon and she decided not to come that day nor the next day. Upon further questioning today, the patient states that she did shower perhaps, but that she always covers it with a special wrap, so that it cannot get wet. She states she understands the importance of keeping it dry so that we can leave the EpiFix intact for the whole week. The patient does not admit to any fevers, chills, nausea, vomiting, shortness of breath or chest pain, but states she overall is having a little bit of perhaps sinus issues in her face, making her feel a little down. OBJECTIVE: Vitals: Temperature was not taken, heart rate 58, respiration rate 16, blood pressure 157/82. O2 saturation is 94% on room air. Vascular: Palpable DP and PT pulses, right foot. Capillary refill time is less than 3 seconds to the toes of the right foot. There is mild edema still noted, right lower extremity. Dermatologic: The right lower leg ulcer is obviously improving with almost no purple discoloration around the edges and with a wound base having some fibrous slough present again. This was debrided down to a slightly bleeding base with a very coarse granular base that did not bleed very much. This was rinsed with copious amounts of normal saline, dried and dressings applied as discussed later on. There is no erythema or malodor or warmth or any signs of infection noted. The wound measurement for the right lower leg ulcer today measured 7.2 x 2.35 x 0.2 cm deep. Musculoskeletal: There is no pain on palpation nor with debridement after having used the Emla cream first. There were no other gross abnormalities noted, right leg. Neurologic: Light touch sensation is slightly diminished to the toes. ASSESSMENT AND PLAN: 1. Venous insufficiency ulcer, right lower extremity/vasculitis. 2. Venous insufficiency, right lower extremity. PROCEDURE#1: Sharp debridement less than 20 sq cm with a curette was performed down to and including subcutaneous tissue layer of the right lower extremity. This was rinsed with copious amounts of normal saline. This was dried and then appropriate graft application was performed as described next. PROCEDURE #2: Biologic EpiFix graft 2.0 x 4.0 cm was applied 100% to the wound base and held down by Adaptic layer held down by Steri-Strips on the edges to help hold in place. A piece of Hydrofera Blue was then placed over the wound, covered by 4x4 gauze and Kerlix. This was all covered by an appropriate stocking and CircAid wrap to 40 mmHg followed by the compression stocking for the lower leg and foot. The patient had no further questions or concerns. She tolerated the procedures well. She knows the importance of leaving this alone and if she does shower that she needs to protect it in a way that it cannot get wet. We will have her come for a regular nursing visit on Thursday and then again on Thursday and I will see her next week on Thursday. If the drainage seems to be less than previous then we will consider switching her to an overall Thursday and visit where I will see her and she will see a nurse on Mondays. We will consider this depending on how much improvement we have on her drainage. Portia CastroP.M. (Dictated/not signed) /Accutype [id number] & 0212/mab DEMETRIS
== END 2019-08-31 14:45 ==
LOC: POD 14:33
PROVIDERS: ATTEND Podiatrist Foot & Ankle Surgery
DX: I87.2 Venous insufficiency (chronic) (peripheral) (principal); L97.919 Non-pressure chronic ulcer of unspecified part of right lower leg with unspecified severity
CPT/HCPCS: 11042; 99212; G0463; A4554

== ENCOUNTER 2019-09-07 14:26 | Outpatient (CLI) | payer MEDICARE, OTHER ==
--- NOTE | 2019-09-20 08:30 | OP Clinic Progress Note ---
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 The patient upon lots of question from the nurse seems to not be using her CircAid and I am concerned that she does have more swelling today than she has previously. This was discussed with the patient today and she understands we really need to be using the CircAid to keep swelling down in this leg. The patient is doing Thursday and Thursday visits with the nurses to make sure she is getting appropriate dressings done. The patient denies any concerns or issues over the last week. She does not admit to any fevers, chills, nausea, vomiting, shortness of breath or chest pain. OBJECTIVE: Vitals: Temperature 98.3 degrees Fahrenheit, heart rate 63, respiration rate 18, blood pressure 140/90. O2 saturation is 92% on room air. Vascular: Palpable DP and PT pulses, right foot. Capillary refill time is less than 3 seconds to the toes of the right foot. There is gymp-[id number] edema noted in the right lower extremity today which is worse than last week. Dermatologic: There is an open ulcer to the right medial lower leg present still with some white and yellow slough present. This was debrided to a slightly bleeding and somewhat dry granular base. The edges of the wound have very little purple discoloration at all at this time. This is the most stable and healthy this wound has appeared to be so far. There is some malodor to the wound with some mild green drainage noted in the dressings today. The site was washed with a copious amount of normal saline to try and clean it well prior to repeat graft application as there are no signs of erythema or purulence or warmth noted on the edges of the wound. There are no other open areas or concerning areas, right lower extremity. Measurements today of the right medial lower leg ulcer at 7.2 x 2.2 x 0.1 cm deep. This is improved from last week, which measured 7.2 x 2.35 x 0.2 cm deep. Musculoskeletal: There is slight pain with debridement of the right lower leg ulcer. There are digital deformities noted on the right foot consistent with previous exams. We did not visualize the left foot today. We will visualize that again next week as the patient did not take off the shoes in order for me to check the left toe today. The left toe was slightly open last week and she was doing antibiotic and bandage to that area. We will make sure that we make note of this next week. Neurologic: Light touch sensation is intact to the toes, right foot. ASSESSMENT AND PLAN: 1. Right lower extremity venous insufficiency ulcer. 2. Venous insufficiency right lower extremity. 3. Pressure ulcer, left second toe PIPJ, not visualized today. PROCEDURE #1: Sharp debridement less than 20 sq cm with a curette down to and including subcutaneous tissue was performed today. This was washed with a copious amount of normal saline, dried and we proceeded with procedure #2. PROCEDURE #2: A biologic graft of EpiFix 2.0 x 4.0 cm graft was applied, 100%, filling two thirds of the wound or approximately thereof and was covered with Adaptic held down by Steri-Strips. It should be noted that prior to that application of the Adaptic the graft was wet with some normal saline and gauze and confirmed to be on the wound and healing well prior to Adaptic and Steri- Strip application. The patient tolerated the procedure well. Dressings were applied consisting of Hydrofera Blue, 4 x 4 gauze, ABD pad and Kerlix and then we had the normal stockings with CircAid applied. We discussed again the importance of utilizing the CircAid wraps. The patient understands and will work on doing that better. Return to clinic in one week for a visit with me and return to clinic on Thursday and Thursday for nursing visits with dressing changes. Portia CastroP.M. (Dictated/not signed) /Accutype [id number].RTF & 0225/mab MTDD
== END 2019-09-07 14:45 ==
LOC: POD 14:26
PROVIDERS: ATTEND Podiatrist Foot & Ankle Surgery
DX: I87.2 Venous insufficiency (chronic) (peripheral) (principal); L97.519 Non-pressure chronic ulcer of other part of right foot with unspecified severity; L89.899 Pressure ulcer of other site, unspecified stage
CPT/HCPCS: 11042; 99213; G0463

== ENCOUNTER 2019-09-09 11:35 | Outpatient (CLI) | payer MEDICARE, OTHER | END 2019-09-09 12:00 | LOC: OUT 11:35 | PROVIDERS: ATTEND Podiatrist Foot & Ankle Surgery | DX: Z48.00 Encounter for change or removal of nonsurgical wound dressing (principal) ==

== ENCOUNTER 2019-09-14 14:26 | Outpatient (CLI) | payer MEDICARE, OTHER ==
--- NOTE | 2019-09-23 12:26 | OP Clinic Progress Note ---
DATE OF VISIT: 09/14/2019 SUBJECTIVE: Michelle presents today for followup of venous insufficiency ulcer of the right lower extremity. The patient denies any issues or complaints over the last week and is here for followup after a graft application last week. She has had two graft applications previously and is here today for her third graft application as needed. The patient does not admit to any fever, chills, nausea, vomiting, shortness of breath or chest pain. She feels that the wound is looking improved after looking at it today with dressings off and that it is flattening. OBJECTIVE: Vitals: Temperature 97.8, heart rate 75, respiration rate 16, blood pressure 177/75, O2 sat is 92% on room air. Vascular: Palpable DP and PT pulses right foot. Capillary refill time less than 3 seconds to the toes right foot. There is mild edema noted right lower extremity. Dermatologic: The right anteromedial lower leg ulcer is still present with measurement today of 6.8 x 2.1 x 0.2 cm deep. The patient has no erythema around the wound nor any purulence or malodor noted. There is some yellow slough, which is debrided today down to a bleeding granular base. We actually do have the measurements from last week which measured at 7.2 x 2.2 x 0.1 cm deep. It definitely had some improvement especially in terms of length of this wound. There are no other skin concerning lesions. There was also noted hyperkeratotic tissue noted sub-third metatarsal head, right foot as well as mild hyperkeratotic tissue/eschar on the left second toe medial DIPJ region. This was evaluated today as well, which appears to have healed with a healthy stable small scab on the left second toe. The second toe is deviated laterally at the DIPJ especially and rotated as well. The patient has a digital contracture at the MPJ as well of the left second toe as well as several other toes on the left foot. After debridement of the hyperkeratotic tissue, it was noted that there was a very superficial ulcer that was present due to the pressure underneath that third metatarsal head. There is no erythema or signs of infection, drainage or purulence noted. Musculoskeletal: There is no pain to debridement nor any gross abnormalities noted outside of some severe hammer toe contractures and prominent metatarsal heads plantarly on the right foot. There is notable digital contracture deformity on bilateral feet with prominent metatarsal heads as mentioned before. Neurologic: Light touch sensation is intact to the toes bilaterally. ASSESSMENT AND PLAN: 1. Venous insufficiency ulcer right lower extremity. 2. Venous insufficiency right lower extremity. 3. Hyperkeratosis right plantar foot. 4. Hammertoe contractures, bilaterally. 5. Pressure ulcer left second toe with stable eschar. 6. Pressure ulcer stage II right sub-third metatarsal head. PROCEDURE #1: Sharp debridement with a curette less than 20 sq cm down to and including the subcutaneous tissue of the right lower extremity ulcer, this was rinsed with a copious amount of normal saline. This was dried and dressings were applied as below. PROCEDURE #2: EpiFix graft 2.0 x 4.0 cm was applied 100% to the right lower extremity ulcer today. This was then wet with normal saline and then had dressings applied consisting of Adaptic, Hydrofera Blue foam, 4x4 gauze, ABD pad and a Kerlix. She then had her normal CircAid and compression stocking applied. PROCEDURE #3: Debridement of hyperkeratotic tissue sub-third metatarsal head right foot without incident. Triple antibiotic ointment and a Band-Aid was applied as there was a very superficial wound noted there. We will follow up on that next week. The patient will continue antibiotic ointment and a Band-Aid to the right sub- third metatarsal head area and keep an eye on it. We will also ourselves keep an eye on the right lower extremity ulcer and the left second toe stable eschar. We discussed a little bit more of the possibility of surgery to straighten the left second toe and the possibility of either a Budin splint for the right third toe due to the foot deformity in order to take away pressure underneath that third metatarsal head versus possible surgery to correct the hammertoes on that side. She is being treated with medication for rheumatoid arthritis, but states she is not sure if she has had the official diagnosis. 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 We will have the patient return to clinic in one week for continued local wound care. She will also have the nurses visit on Thursday in outpatient clinic and Thursday in the [facility] for nursing visits. We will continue the discussion about surgery once things heal up a little bit more. Sidney Dugan, D.P.M. (Dictated/not signed) /Accutype [id number] /mab MTDD
== END 2019-09-14 14:55 ==
LOC: POD 14:26
PROVIDERS: ATTEND Podiatrist Foot & Ankle Surgery
DX: I87.2 Venous insufficiency (chronic) (peripheral) (principal); L85.9 Epidermal thickening, unspecified; M20.41 Other hammer toe(s) (acquired), right foot; M20.42 Other hammer toe(s) (acquired), left foot; L89.892 Pressure ulcer of other site, stage 2
CPT/HCPCS: 11042; 11055; 99213; G0463; A4554

== ENCOUNTER 2019-09-16 11:37 | Outpatient (CLI) | payer MEDICARE, OTHER | END 2019-09-16 12:07 | LOC: OUT 11:37 | PROVIDERS: ATTEND Podiatrist Foot & Ankle Surgery | DX: Z48.00 Encounter for change or removal of nonsurgical wound dressing (principal) ==

== ENCOUNTER 2019-09-21 14:33 | Outpatient (CLI) | payer MEDICARE, OTHER ==
--- NOTE | 2019-09-27 07:29 | OP Clinic Progress Note ---
DATE OF VISIT: 09/21/2019 SUBJECTIVE: Michelle presents to the clinic today for followup of venous insufficiency ulcer on the right lower leg medially as well as a sub-third metatarsal head ulcer/hyperkeratosis as well as followup for a left second toe medial ulcer from pressure as well that we had been following. The patient denies any issues over the last week but she was not feeling great on Thursday and therefore did not come in for dressing change. She had her sister help her do her dressing change at home but she did not have Hydrofera Blue to help with the drainage. She presents today with verbalized concern regarding the malodor that she noticed recently. She had an EpiFix 2 x 4 graft applied last week. She is here for followup on that. She does not admit to any other fevers, chills, nausea, vomiting, shortness of breath or chest pain. She says that she is feeling better today. OBJECTIVE: Vitals: Temperature 97.9 degrees Fahrenheit, heart rate 63, respiration rate 18, blood pressure 166/84. O2 saturation is 94% on room air. Vascular: Palpable DP and PT pulses, right and left feet. Capillary refill time is less than 3 seconds to the toes bilaterally. There is mild edema noted in the bilateral lower extremities. Dermatologic: Right lower leg ulcer today is with some maceration tissue on the edges and is measuring today at 7.0 x 2.2 x 0.1 cm deep. This is approximately the same if not slightly larger than last week which measured 6.8 x 2.1 x 0.2 cm deep. There is a moderate amount of yellow slough and necrotic tissue. The yellow slough was debrided today to a somewhat bleeding granular base. This was rinsed with a copious amount of normal saline today. The right sub-third metatarsal head/possibly sub-fourth metatarsal head region is with hyperkeratotic tissue and a central ulcer that is into the subcutaneous tissue layer. This area is measuring 0.5 x 0.4 x 0.4 cm deep. This is debrided with a #15 blade today as well to granular base. The left second toe medial pressure ulcer has healed and has a very mild hyperkeratotic layer, which was debrided with a #15 blade today. There is no erythema or signs of warmth or concern or drainage of any kind at the left second toe. Musculoskeletal: There is mild pain with palpation and with debridement of the right lower leg ulcer. The patient also has pain on palpation and with debridement to the right sub-third metatarsal head ulcer. There is no pain on the left second toe at this time. There is notable hammertoe contracture/digital deformities noted on bilateral feet, toes 1, 2 3 and 5 on the right as well as at least the second toe, left. These have been described more in detail on previous notes. Neurologic: Light touch sensation is diminished to the toes bilaterally. ASSESSMENT AND PLAN: 1. Venous insufficiency ulcer of the right lower extremity. 2. Venous insufficiency of right lower extremity. 3. Pressure ulcer stage III right sub third metatarsal head. 4. Hammertoe contractures bilaterally. 5. Pressure ulcer stage III left second toe medially - healed. PROCEDURE #1: Sharp debridement of the right lower leg ulcer, less than 20 sq cm was performed down to and including the subcutaneous tissue layer with the curette. This was then rinsed with copious amount of normal saline. At this time, as there is some maceration and slight irritation around the edges of the ulcer it was decided to just do a wet-to-dry dressing, which was performed today rather than doing another graft application today. We will try and make sure that we do a graft application next week as long as things are improving. PROCEDURE #2: Sharp debridement of the right sub-third and metatarsal head ulcer and hyperkeratotic tissue was performed, less than 20 sq cm with a #15 blade. This was dressed with triple antibiotic ointment and a Band-Aid. It should also be known that an adjustment was made to the patient's custom diabetic foot orthotic adding a little bit of padding around the medial lateral and proximal edge where the third metatarsal head ulcer will land. This was tested against the foot and found to be in appropriate location. We discussed with the patient the importance of using the crescent pads on the left second toe area to continue keeping that offloaded. We also discussed that we may want to consider x-rays and possible surgical plan to help with if we are having a hard time keeping these areas from ulcerating. If we are unable to get good offloading with the diabetic inserts that she has, then we will need to consider some sort of surgical procedure to straighten the toes, etc. The patient had no further questions or concerns and we will plan on seeing her in one week for her return to clinic visit. She will see Naida in outpatient on Thursday and clinic on Thursday then I will see her on Thursday, hopefully for another graft application. Shikha Castro.P.M.(Dictated/not signed) /Accutype [id number] /mab MTDD
== END 2019-09-21 15:00 ==
LOC: POD 14:33
PROVIDERS: ATTEND Podiatrist Foot & Ankle Surgery
DX: I87.2 Venous insufficiency (chronic) (peripheral) (principal); L89.893 Pressure ulcer of other site, stage 3; M20.42 Other hammer toe(s) (acquired), left foot; M20.41 Other hammer toe(s) (acquired), right foot
CPT/HCPCS: 11042; 11055; 99212; G0463; A4554

== ENCOUNTER 2019-09-23 11:31 | Outpatient (CLI) | payer MEDICARE, OTHER | END 2019-09-23 12:20 | disposition home or self-care (01) | LOC: OUT 11:31 | PROVIDERS: ATTEND Podiatrist Foot & Ankle Surgery | DX: Z48.00 Encounter for change or removal of nonsurgical wound dressing (principal) ==

== ENCOUNTER 2019-09-27 10:49 | Outpatient (CLI) | payer MEDICARE, OTHER ==
--- NOTE | 2019-09-29 15:02 | OP Clinic Progress Note ---
DATE OF VISIT: 09/27/2019 SUBJECTIVE: Michelle is a 69-year-old female presenting to the clinic today for followup of A venous insufficiency ulcer of the right lower extremity as well as a pressure ulcer stage III, right sub-fourth metatarsal head and a healed left pressure ulcer stage III on the left second toe medially. The patient is doing well, but was unable to come in to have her regular nursing visit yesterday. Because of this we were able to get her in today instead and due to the weather issues the next couple of days, we will see her again on Thursday for a nursing visit in outpatient followed by a nursing visit on Thursday and then I will see her on Thursday next week for a regular Thursday visit. The patient does not admit to any issues over this last week. She did take off all the dressings and showered I believe today before coming in. She states that she is having more neuropathy pain and was concerned that the padding that I put in her insert might be causing some pain, but then she thought that it was more the neuropathy that was the issue. She is happy to hear that the wound size is improving. She does not admit to any fever, chills, nausea, vomiting, shortness of breath or chest pain. OBJECTIVE: Vitals: Temperature 97.8, heart rate 76, respiration rate 16, blood pressure 144/91, O2 sat is 92% on room air. Vascular: Palpable DP and PT pulses right foot. Capillary refill time less than 3 seconds to the toes right foot. There is very mild edema noted right lower extremity. Dermatologic: The right lower leg ulcer today is measuring at 6.7 x 2.1 x 0.1 cm deep. This is improved from last week which was measuring 7.0 x 2.2 x 0.1 cm deep. We did not use a graft last week as the skin was a little bit irritated and we were able to give it a week break. There is no erythema or malodor, purulence or abnormal drainage. There is some yellow slough, and fibrous tissue in the base which was debrided today to a slightly bleeding base. Right sub-fourth metatarsal head ulcer has some hyperkeratotic tissue which was debrided down to an almost healed base. The base is measuring approximately 0.6 x 0.1 x 0.1 cm deep. This is also improved from last week where it was measuring 0.5 x 0.4 x 0.4 cm deep. There is no erythema or drainage or purulence or warmth noted. The left foot was not visualized today as it was healed last week. The patient states that she is using the custom pads for the left second toe again, which is good. Musculoskeletal: There is mild pain with debridement of the right lower leg ulcer today. There is also very mild pain at the right sub-third/fourth metatarsal head ulcer area. There are no other gross abnormalities noted outside of some significant hammertoe and digital contractures noted on the right foot today, toes 1, 2, 3, and 5 as well as at least the left second toe from previous again. Neurologic: Light touch sensation is diminished at the toes bilaterally. ASSESSMENT AND PLAN: 1. Venous insufficiency ulcer of the right lower extremity. 2. Venous insufficiency of the right lower extremity. 3. Pressure ulcer stage III of the right sub-third/fourth metatarsal head. 4. Hammertoe contractures, bilaterally. 5. Pressure ulcer left stage III left second toe medially - healed. PROCEDURE #1: EpiFix graft 2.0 x 4.0 cm graft was applied 100% to the right lower leg ulcer today. This was dampened with a wet normal saline soaked gauze and dressed with Adaptic, Hydrofera Blue, 4x4 gauze, and Kerlix. The remaining dressings were noted as given below. PROCEDURE #2: Sharp debridement of the right lower leg ulcer, was performed today with a #15 blade less than 20 sq cm down to and including the subcutaneous tissue layer and crosshatching of the wound base was performed as well to stimulate a little bit of bleeding. This was rinsed with a copious amount of normal saline. PROCEDURE #3: Sharp debridement of the wound hyperkeratotic tissue and base of the right sub-third/fourth metatarsal head was performed down to and including the subcutaneous tissue layer less than 20 cm2 with a #15 blade. This was rinsed with a copious amount of normal saline, dried and dressed with triple antibiotic ointment and Band-Aid. The patient is to continue doing this daily. We are going to continue having her use the U-pad that was placed in her insert to keep padding off of this wound as it is improving greatly from past week. The patient had the remaining portion of her compression stocking and CircAid wrap applied. The patient has no further questions or concerns and we will have her see Naida in outpatient for nursing visit on Thursday followed by Mark on Thursday for a nursing visit and then I will see her on Thursday in 1 week from tomorrow. 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 The patient understands this and would like to avoid surgery if possible. So we will continue conservative care as much as possible. ELPIDIO MITCHELL DPM & 0274/mab MTDD
== END 2019-09-27 11:20 ==
LOC: POD 10:49
PROVIDERS: ATTEND Podiatrist Foot & Ankle Surgery
DX: I87.2 Venous insufficiency (chronic) (peripheral) (principal); L89.893 Pressure ulcer of other site, stage 3; M20.41 Other hammer toe(s) (acquired), right foot; M20.42 Other hammer toe(s) (acquired), left foot
CPT/HCPCS: 11042; 11045; 99212; G0463; A4554

== ENCOUNTER 2019-10-01 16:32 | Emergency (ER) | payer MEDICARE, OTHER ==
[2019-10-01 17:05] VITALS: BP 155/81
--- NOTE | 2019-10-01 17:07 | ED Physician Documentation ---
Shoulder Injury/Pain - HISTORIAN Historian: patient - HPI Stated Complaint: lt arm pain Chief Complaint: Shoulder Injury/ Pain (Left shoulder pain) Additional Information: 69 year old female presents to the ER with c/o left shoulder pain that started approx. one week ago; she is unsure of any injury. She does have a small bruise. She is able to raise the left arm but has pain when she lowers it. Onset: days ago (1 week ago) Where: home Severity: mild Pain: persistent Context: denies: fall, direct blow Associated Symptoms: tingling - ROS CONST: no problems CVS/RESP: none GI/: denies: nausea, vomiting MS/SKIN/LYMPH: none NEURO: none - PAST HX Past History: diabetes Type 2, other (HTN, HLD) Immunizations: UTD Allergies/Adverse Reactions: Allergies Allergy/AdvReac Type Severity Reaction Status Date / Time diphenhydramine HCl AdvReac Intermediate Hives Verified 10/01/19 17:21 [From Benadryl] Sulfa (Sulfonamide AdvReac Intermediate Hives Verified 10/01/19 17:21 Antibiotics) Home Medications: Ambulatory Orders Medication Instructions Recorded Aspirin 81 mg PO DAILY u2 11/02/14 Atorvastatin Calcium [Lipitor] 40 mg PO DAILY u2 11/02/14 Gabapentin 1,200 mg PO TID av 11/02/14 Metformin HCl [Glucophage] 1,000 mg PO D #180 u2 11/02/14 Omeprazole 20 mg PO DAILY 11/02/14 Potassium Chloride 20 meq PO DAILY u2 11/02/14 Cetirizine HCl [Zyrtec] 10 mg PO D 08/24/18 Folic Acid 1 mg PO D 08/24/18 L. Rhamnosus GG/Inulin [Culturelle See Protocol PO D 08/24/18 Capsule] Lisinopril/Hydrochlorothiazide 1 tab PO D 08/24/18 [Zestoretic] Methotrexate [Xatmep] 3 tab PO D 08/24/18 Clindamycin HCl 300 mg PO QID #40 capsule 10/01/19 - SOCIAL HX Smoking History: non-smoker Alcohol Use: none Drug Use: none - FAMILY HX Family History: none - VITAL SIGNS Vital Signs: Vital Signs Temp Pulse Resp BP Pulse Ox 98.4 F 104 H 16 155/81 98 10/01/19 18:02 10/01/19 18:02 10/01/19 18:02 10/01/19 18:02 10/01/19 18:02 - REVIEWED ASSESSMENT Nursing Assessment Reviewed: Yes Vitals Reviewed: Yes ED Results Lab/Radiology - Radiology Radiology Impressions: Left shoulder 3 views Clinical history pain Findings: Arthritic changes are present at the acromioclavicular and glenohumeral joints. Calcified densities inferior to the glenohumeral joint are probably loose bodies in the shoulder joint versus soft tissue calcification. No fracture dislocation Electronically signed on Oct 01, 2019 5:30:17 PM CDT by: Jeff Glaser - Orders Orders: ED Orders Category Date Time Status Sling to Affected Extremity 1T Care 10/01/19 17:45 Active SHOULDER 2 VIEWS OR MORE [RAD] Stat Exams 10/01/19 Completed Shoulder Injury Physical Exam - Physical Exam General Appearance: no acute distress, alert Shoulder: soft-tissue tenderness, limited ROM, limited abduction Upper Extremity: swelling (left elbow with redness (cellulitis)- pt was unaware; denies any pain ) Neuro: sensation nml, motor nml Vascular: no vascular compromise, motor nml, sensation nml Skin: warm/dry, normal color Head/ENT: nml inspection, pharynx nml Respiratory: breath sounds nml CVS: heart sounds normal Discharge Clincal Impression: Arthritis of left shoulder region, Cellulitis of left elbow Prescriptions: Clindamycin HCl 300 mg PO QID #40 capsule Referrals: Felicitas Washington FNP [Primary Care Provider] - 2 Days Additional Instructions: May wear sling; be careful it can increase the risk of falls Take Tramadol 50 mg by mouth every 6 hours as needed for breakthrough pain Try taking Tylenol Arthritis May use heating pad, icy hot, salonpas Follow up with your Orthopedic Surgeon Take Clindamycin 300mg by mouth QID x 10 days for cellulitis Comments: Offered to refer to orth at [facility] and she would like to see her ortho provider in [place] Condition: Good Decision to Admit: NO Decision Time: 18:02
--- NOTE | 2019-10-01 17:34 | Diagnostic Imaging Report ---
PATIENT MR#: [id number] PATIENT PATIENT NAME: HUMAIRA ARREDONDO DATE OF : 1950 REFERRING PHYSICIAN: Danita Frank EXAM DATE: 10/01/2019 ACCESSION NUMBER: [id number] EXAM DESCRIPTION: SHOULDER 2 VIEWS OR MORE Left shoulder 3 views Clinical history pain Findings: Arthritic changes are present at the acromioclavicular and glenohumeral joints. Calcified d ensities inferior to the glenohumeral joint are probably loose bodies in the shoulder joint versus soft tissue calcific ation. No fracture dislocation Read by: Dr. Jeff Glaser Transcribed by: Transcribed Date: Electronically signed by: Dr. Jeff Glaser Date signed: 10/01/2019 5:33:57 PM
== END 2019-10-01 18:02 ==
LOC: ED 16:32
DX: M19.012 Primary osteoarthritis, left shoulder (principal); L03.114 Cellulitis of left upper limb
CPT/HCPCS: 73030; 99283; 99284

== ENCOUNTER 2019-10-04 12:52 | Outpatient (CLI) | payer MEDICARE, OTHER ==
--- NOTE | 2019-10-05 10:39 | OP Clinic Progress Note ---
DATE OF VISIT: 10/04/2019 SUBJECTIVE: Michelle Ovalle is a 69-year-old female presenting to the clinic today for follow up of a venous insufficiency/vasculitis ulcer of the right lower extremity as well as a pressure ulcer sub-third/fourth metatarsal head right foot as well as follow up of a previously healed left second toe medial ulcer due to digital deformity. The patient states that she is doing well and has adjusted well to the U pad that was applied to her insert on the right foot to offload the sub-third/fourth metatarsal head ulcer. She is doing well with it and denies any issues with it. She also states that she is doing well except for she does have a cellulitis that she had going on in her left elbow that she is being treated for elsewhere. The patient is here for followup after a graft application last week. She was able to keep the wound clean, dry and intact. She is here today as she was leaving town tomorrow and we were unable to see her tomorrow, so we are seeing her today instead of seeing her yesterday and tomorrow. The patient does not admit to any fevers, chills, nausea, vomiting, shortness of breath or chest pain. OBJECTIVE: Vitals: Temperature 97.4 degrees Fahrenheit, heart rate 60, respiration rate 18, blood pressure 146/80. O2 saturation is 98% on room air. Vascular: Palpable DP and PT pulses, right foot. Capillary refill time is less than 3 seconds to the toes of the right foot. There is mild edema of the right lower extremity. Dermatologic: The right sub-third/fourth metatarsal head ulcer today is epithelialized with a slight callus over a very small superficial ulcer. The callus is covering the ulcer and was left alone today to allow it to continue to heal underneath. We will leave this alone this week and potentially debride it again next week. There is no drainage at this time at this area. There is no erythema or malodor or drainage noted. The right lower leg ulcer today is measuring at 6.5 x 2.2 x 0.1 cm deep. The proximal bridge where the graft was placed has filled in greatly to have pretty much zero depth and is in line with the skin. The distal aspect still is at about 0.1 cm depth. The surrounding skin looks healthy and strong without hardly any purple discoloration. It is filling in well and with slight improvement in overall length from a previous measurement of 6.7 x 2.1 x 0.1 cm deep. There is no erythema, malodor, purulence or abnormal drainage. There is a significant amount of fibrous slough that was debrided today to a more granular base today. There is still mild fibrous tissue in the base. The left second toe previous ulcer is still healed and looks great with almost no hyperkeratosis at all. She is using a crescent pad to offload the toe which is working very well for her. She is to continue doing that. Musculoskeletal: There is mild to no pain with debridement of the right lower leg ulcer. There is no pain on palpation noted today at the right sub- third/fourth metatarsal head ulcer area that has a slight callus over it. There is continued digital deformity noted of the left second toe with an abducted second toe at the PIPJ. Neurologic: Light touch sensation is diminished to the toes bilaterally. ASSESSMENT AND PLAN: 1. Venous insufficiency ulcer of the right lower extremity. 2. Venous insufficiency of the right lower extremity. 3. Pressure ulcer stage 3 right sub-third/fourth metatarsal head ulcer with a very mild callus overlying a very now superficial area which was left alone and covered with a Band-Aid today. It is no longer stage 3. 4. Hammertoe contractures, bilaterally. 5. Pressure ulcer left second toe, healed. It still looks great. PROCEDURE #1: Sharp debridement of the right lower extremity venous insufficiency ulcer was performed with a curette down to and including the subcutaneous tissue layer less than 20 sq cm today. It was rinsed with a copious amount of normal saline, dried and graft was applied as mentioned in procedure #2. PROCEDURE #2: A 2.0 x 4.0 cm EpiFix graft was placed 100% of the graft in the right lower extremity ulcer with some room to spare where the graft was not applied. This was wet with normal saline and had Adaptic placed to cover the graft followed by Hydrofera Blue, 4x4 gauze and Kerlix, followed by the normal CircAid wrap. The patient is to continue using the CircAid/compression dressings at all times and is to leave the dressings alone except for maybe one dressing change as needed in the next five days while she is out of town. She will get back in town next week and we will see her on Thursday for getting back on regular schedule for a likely repeat graft application. She is continuing to tolerate the graft applications well and she is improving with the right sub-third/fourth metatarsal head lesion. We will continue to watch these carefully. The patient will return to clinic next week on Thursday. She is to call with any questions and we will see her at that time. Sidney Dugan D.P.M. /[employer] [id number] /mab MTDD
== END 2019-10-04 13:20 ==
LOC: POD 12:52
PROVIDERS: ATTEND Podiatrist Foot & Ankle Surgery
DX: I87.2 Venous insufficiency (chronic) (peripheral) (principal); L89.893 Pressure ulcer of other site, stage 3; M20.41 Other hammer toe(s) (acquired), right foot; M20.42 Other hammer toe(s) (acquired), left foot
CPT/HCPCS: 11042; 99212; G0463; A4554

== ENCOUNTER 2019-10-12 14:07 | Outpatient (CLI) | payer MEDICARE, OTHER ==
--- NOTE | 2019-10-14 14:49 | OP Clinic Progress Note ---
DATE OF VISIT: 10/12/2019 SUBJECTIVE: Michelle Ovalle is a 69-year-old diabetic female presenting to clinic today for followup of a right lower extremity venous insufficiency ulcer as well as sub third/fourth metatarsal head hyperkeratosis that has been open previously and most recently was closed with some thickening and soreness at the head. The patient states she is doing well and does not admit to any issues over this last week. She was gone on vacation and is back today for followup and repeat graft application if needed. The patient does not admit to any fevers, chills, nausea, vomiting, shortness of breath or chest pain. She states she is willing to do a multi-layer compression wrap to try and help keep the swelling of this leg a little bit better than what we are getting with the CircAids. This will also prevent it from being opened at all and she knows that she would need to keep it clean and dry with showering with a shower bag. OBJECTIVE: Vitals: Temperature 97.7 degrees Fahrenheit, heart rate 61, respiration rate 16, blood pressure 144/74. O2 saturation is 96% on room air. Vascular: Palpable DP and PT pulses, right foot. Capillary refill time is less than 3 seconds to the toes of the right foot. There is mild edema noted still in the right lower extremity. Dermatologic: Right sub third mainly, but also fourth metatarsal head ulcer lesion has opened up at this time measuring at 0.4 x 0.3 x 0.1 cm deep. There is mild red irritation around the edge, but no real erythema and no drainage or malodor or other signs of infection. This had some slough in the base, which is debrided to a bleeding granular base today with #15 blade. The right lower leg ulcer is improving in depth as the entire site has an improved depth except for the very distal lateral aspect, which has a little bit more depth than the rest measuring at about 0.1 cm deep. There is no erythema around the edges and no warmth or signs of infection or malodor or purulence noted. There was some definite slough in the base of the wound, which was debrided to a little bit more bleeding fibrogranular base. This was measured today at 6.3 x 2.3 x 0.1 cm deep. This is slightly improved in length as last time it measured 6.5 x 2.2 x 0.1 cm deep. We are getting slow improvement on this wound. Hopefully, now that most of the depth has filled in it will continue more quickly on the edges. There are no signs of infection at this time. There are no other skin concerns noted. We did not view the left second toe as it has been healed the last couple of visits. Musculoskeletal: There is mild to no pain with debridement of the right lower leg ulcer today. There is definitely some pain with debridement and palpation at the right sub third/fourth metatarsal head ulcer area with a slight bit of callus around the edge that was also debrided today. There are continued digital deformities noted of the first, second, third and fifth toes of the right foot. There are also digital deformities on the left, which was not visualized today. It should be noted that the visual deformities are with dorsiflexion of the metatarsophalangeal joint causing a very prominent plantar forefoot for the patient. I am concerned that these may need to be addressed in order to get pressure off of the sub third/fourth metatarsal head area. I believe that the patient had a partial metatarsal amputation of the fourth possibly done previously, but I would need to doublecheck that. Neurologic: Light touch sensation is diminished to the toes bilaterally. ASSESSMENT AND PLAN: 1. Venous insufficiency ulcer of the right lower extremity. 2. Diabetic foot ulcer/pressure ulcer stage 3 right sub third/fourth metatarsal head. 3. Venous insufficiency of the right lower extremity. 4. Hammertoe contractures bilaterally. 5. Pressure ulcer left second toe, healed, not visualized today. PROCEDURE #1: EpiFix 2.0 x 4.0 cm graft application was applied 100% to the right lower extremity ulcer today. This was wet with normal saline and gauze and then dressed with Adaptic, Hydrofera Blue foam pad and then 4 x 4 gauze and Kerlix. The patient tolerated the procedure well. The patient is improving with this graft application. PROCEDURE #2: Prior to graft application there was a sharp debridement to the right lower leg ulcer less than 20 square cm down to and including subcutaneous tissue layer with a curette. This was rinsed with a copious amount of normal saline, dried and graft and dressings were applied as above. The patient tolerated this well. PROCEDURE #3: Sharp debridement of the right sub third metatarsal head ulcer down to and including subcutaneous tissue layer less than 20 square cm with #15 blade was also performed. This was dressed with Triple Antibiotic Ointment and a Band-Aid. PROCEDURE #4: Four layer compression wrap was applied to the right lower extremity to try and improve venous insufficiency/compression to improve healing this leg wound. A surgical shoe with a one quarter inch belt pad added with an off loaded spot for the sub third/fourth metatarsal head area where the ulcer has developed was dispensed to the patient today. The patient is to wear this at all times weightbearing. She knows this includes nighttime, if she gets up to go to bathroom she needs to wear it. She was explained today that if she does not offload this area she will open up a wound worse and she will potentially get infection in that wound and will almost surely require a transmetatarsal amputation based on her previous surgery already on that foot. She understands the concerning point she is at and the importance of strict compliance. We will have the patient return to clinic in one week for followup and continued aggressive wound care on the right lower leg ulcer and the right sub third/fourth metatarsal head ulcer. We will likely plan on a graft application again as well. The patient will see the nurse in outpatient on Thursday for nursing visit and then Thursday again for nursing visit. After our next visit next week, she will have a nursing visit again on Thursday and then will likely see me on the following Thursday, which is the I believe of September. That will be a visit with me before I am out of town for a week and half and we will arrange nursing visits during that time. Sidney Dugan D.P.M./[employer] [id number] /mab MTDD
== END 2019-10-12 14:42 ==
LOC: POD 14:07
PROVIDERS: ATTEND Podiatrist Foot & Ankle Surgery
DX: I87.2 Venous insufficiency (chronic) (peripheral) (principal); E11.621 Type 2 diabetes mellitus with foot ulcer; L89.893 Pressure ulcer of other site, stage 3; M20.42 Other hammer toe(s) (acquired), left foot; M20.41 Other hammer toe(s) (acquired), right foot
CPT/HCPCS: 11042; 29581; A4554; G0463

== ENCOUNTER 2019-10-14 11:37 | Outpatient (CLI) | payer MEDICARE, OTHER | END 2019-10-14 12:20 | disposition home or self-care (01) | LOC: OUT 11:37 | PROVIDERS: ATTEND Podiatrist Foot & Ankle Surgery | DX: Z48.00 Encounter for change or removal of nonsurgical wound dressing (principal) ==

== ENCOUNTER 2019-10-19 14:15 | Outpatient (CLI) | payer MEDICARE, OTHER ==
[2019-10-19 15:16] LABS: MAGNESIUM 1.1 mIU/l (1.6-2.3)
[2019-10-19 15:33] LABS: A1C 5.8 % (<5.7)
== END 2019-10-19 14:20 ==
LOC: LAB 14:15
PROVIDERS: ATTEND Nurse Practitioner
DX: D50.9 Iron deficiency anemia, unspecified (principal); I10 Essential (primary) hypertension; K21.0 Gastro-esophageal reflux disease with esophagitis; E11.9 Type 2 diabetes mellitus without complications; E78.5 Hyperlipidemia, unspecified; G62.9 Polyneuropathy, unspecified; J45.909 Unspecified asthma, uncomplicated; E61.2 Magnesium deficiency; Z68.28 Body mass index [BMI] 28.0-28.9, adult
CPT/HCPCS: 36415; 83036; 83735

== ENCOUNTER 2019-10-20 08:23 | Outpatient (CLI) | payer MEDICARE, OTHER ==
--- NOTE | 2019-10-25 15:07 | OP Clinic Progress Note ---
DATE OF VISIT: 10/20/2019 SUBJECTIVE: Michelle is a 69-year-old female presenting to the clinic for followup of the right lower extremity venous insufficiency ulcer as well as a diabetic foot ulcer/pressure ulcer under the right sub third/fourth metatarsal head area. The patient is doing well and does not admit to any complaints or issues at this time. She had a graft applied last week. She is here for followup and graft application again if possible. She is going out of town next week on Thursday and therefore we are arranging scheduling with her. She does not admit to any fevers, chills, nausea, vomiting, shortness of breath or chest pain. OBJECTIVE: Vitals: Temperature 97.9 degrees Fahrenheit, heart rate 63, respiration rate 16, blood pressure 155/83. O2 saturation is 97% on room air. Vascular: Palpable DP and PT pulses, right foot. Capillary refill time is less than 3 seconds to the toes of the right foot. There is mild edema still noted in the right lower extremity. Dermatologic: Right sub third metatarsal head area with hyperkeratosis that was debrided today with #15 blade to reveal what is a very small superficial ulcer today that was not needed to be measured as it is nearly closed. There is no drainage at this time. It is very tiny and without any undermining or depth, really. There is no erythema or signs of infection. The right lower leg anteromedial ulcer is with some fibrous slough that was debrided today and with some bleeding that was controlled with pressure. The wound measured 5.6 x 1.7 x 0.1 cm deep. This is improved from last week where it measured 6.3 x 2.3 x 0.1 cm deep. This is a great improvement. It looks much better clinically today as well. The depth is improving as well. There is no erythema or signs of warmth or abnormal drainage or purulence noted. There is no malodor either. Musculoskeletal: There is mild to no pain with debridement of the right lower leg ulcer. There is no pain with debridement of the sub third/fourth metatarsal head ulcer of the right foot callus. There are significant digital deformities of the first, second, third and fifth toes of the right foot as well as several on the left that we did not visualize again today. There is prominent plantar metatarsal head areas that are of concern. We are still going to need to consider doing some sort of surgical procedure likely if we cannot keep these offloaded appropriately. I am looking at possibly a kim metatarsal head resection with a first metatarsophalangeal joint effusion if needed. Neurologic: Light touch sensation is diminished to the toes bilaterally. ASSESSMENT AND PLAN: 1. Venous insufficiency right lower extremity. 2. Diabetic foot ulcer/pressure ulcer stage 3 of the right sub third/fourth metatarsal head - superficial at this time. 3. Venous insufficiency of the right lower extremity. 4. Hammertoe contractures bilaterally. PROCEDURE #1: EpiFix 2.0 x 4.0 cm graft application was applied 100% of the graft to the right lower leg ulcer. This was wet with normal saline and had dressings applied consisting of Adaptic, Hydrofera Blue foam pad, 4 x 4 gauze and Kerlix followed by her CircAid wrap. We will resume doing her CircAid wrap at this time as this works better for the patient and she will be leaving town next week on Thursday. PROCEDURE #2: Sharp debridement of the right lower extremity ulcer down to and including subcutaneous tissue layer less than 20 sq cm was performed with a curette today. Bleeding was controlled with pressure, which was mild. This was rinsed with a copious amount of normal saline. The graft was applied as much in procedure #1. PROCEDURE #3: Paring of callus sub third/fourth metatarsal head right foot was performed today. This revealed a very superficial wound, which we will monitor carefully. This appeared better than it did last week. The patient is to continue using her inserts that are offloading that area underneath the third/fourth metatarsal head. The patient will keep the dressing clean, dry and intact. The patient will return to clinic on Thursday at 8 o'clock in the morning in the outpatient clinic or we will come early to see her and look at the dressings and likely debride since she has had the graft on for five days at that point. We will then have her do her own dressing change later that week as she leaves Thursday next week for that whole weekend. She will then see Mark for nursing visit twice the following week after and then Thursday the with Mark and then I will see her again on Thursday, the for our next official visit. She will then continue her normal Thursday and Thursday nursing visits and me on Wednesdays. She is improving greatly and we will not be able to do another graft until Thursday, the when I see her at that time. We may consider doing one more graft if we have that this coming Thursday in outpatient. Sidney Dugan D.P.M. /[employer] [id number] /mab MTDD
== END 2019-10-20 08:55 ==
LOC: POD 08:23
PROVIDERS: ATTEND Podiatrist Foot & Ankle Surgery
DX: I87.2 Venous insufficiency (chronic) (peripheral) (principal); E11.621 Type 2 diabetes mellitus with foot ulcer; L89.893 Pressure ulcer of other site, stage 3; M20.42 Other hammer toe(s) (acquired), left foot; M20.41 Other hammer toe(s) (acquired), right foot
CPT/HCPCS: 11042; 11055; 15271; 99213; G0463; A4554

== ENCOUNTER 2019-10-25 08:08 | Outpatient (CLI) | payer MEDICARE, OTHER ==
--- NOTE | 2019-10-26 15:44 | OP Clinic Progress Note ---
DATE OF VISIT: 10/25/2019 SUBJECTIVE: Michelle is a 69-year-old female presenting to the clinic today for follow-up of venous insufficiency ulcer on the right lower extremity. She is also here for follow-up of the right sub-third metatarsal head area open lesion as well. The patient does not admit to any issues over the last week but does state that she is having pain under the sub-third/fourth metatarsal head areas still. She is using her custom inserts and shoes appropriately. She does not admit to any fevers, chills, nausea, vomiting, shortness of breath or chest pain. She does admit to taking the dressings off down to the level of the blue Hydrofera blue pad and left that alone and then redressed as needed. She states that the dressings fell down a little bit which caused her to get a little bit of a superficial lesion just proximal to the lower leg ulcer. She does not admit to any other issues. She believes that the superficial lesion is from adhesives which would not be from adhesives that I placed as I did not put any on her skin. She states that she believes the adhesives were from on top of the gauze roll and as it folded down that it maybe got on the skin. OBJECTIVE: Vitals: Temperature 97.5, heart rate 61, respiration rate 16, blood pressure 169/74. O2 sat is 95% on room air. We discussed blood pressure with the patient and how it has been consistently high and the patient and understands this. She needs to talk to her primary care doctor about that. Vascular: Palpable DP and PT pulses, right foot. DRUM OPERATOR less than 3 seconds to the toes of the right foot. There is mild edema noted, right foot and leg. Dermatologic: The right lower leg anteromedial ulcer is still present with some yellow slough that was debrided today to a more bleeding, intact and slightly fibrous base. This wound today measured at 5.5 x 1.9 x 0.1 cm deep. This has no erythema or malodor or any abnormal drainage or purulence noted, or any other warmth or signs of infection. This is perhaps slightly improved from last week where it measured 5.6 x 1.7 x 0.1 cm deep. I believe there is a measuring discrepancy, though, as placing the graft showed me today that it is getting smaller as I cannot get the graft to fit widthwise and some is trimmed and placed in the more proximal aspect. There are no other signs of infection noted. The right sub-third/fourth metatarsal head lesion has closed up today. There is no open lesion at this time there. There is very mild, if any, hyperkeratosis today at that site. There are no signs of infection at all. The left second toe is visualized as well today and does not show any evidence of open lesion at all or hyperkeratosis. Upon further thought, the sub-third/fourth metatarsal head area was debrided down and found to not actually be quite closed, but had a very small opening that was measuring 0.1 x 0.1 x 0.1 cm deep. There is no erythema or any abnormal drainage or signs of infection noted. Above, it was mentioned that it was closed, but it was actually slightly open still and debrided today to a bleeding granular base. Musculoskeletal: There is mild pain with debridement of the right lower leg ulcer. There are significant hammertoe contractures noted bilaterally. Toes 2 and 3 and 5 on the right foot are contracted with dorsiflexion contracture at the metatarsophalangeal joint and plantarflexion and contracture at the PIPJ and DIPJ of those toes. The patient has significant prominence at the plantar metatarsal heads on the right foot. There are no other gross abnormalities noted, right foot. There are significant digital deformities of the left foot as well. Neurologic: Light touch sensation is diminished to the toes bilaterally. ASSESSMENT AND PLAN: 1. Venous insufficiency ulcer, right lower extremity. 2. Pressure ulcers, right sub-third/fourth metatarsal heads. 3. Venous insufficiency, bilateral lower extremities. 4. Hammertoe contractures bilaterally. PROCEDURE #1: Graft of EpiFix 2.0 x 4.0 cm was applied, 100% of the graft to the wound base and wet with normal saline and then covered in Adaptic, Hydrofera Blue, 4 x 4 gauze and Kerlix. CircAid wraps were then applied at that time. The patient tolerated the procedure well. PROCEDURE #2: Sharp debridement of the right lower leg ulcer, less than 20 sq cm down to and including the subcutaneous tissue layer was performed with a curette at the right lower leg ulcer and hemostasis was obtained with pressure and it was rinsed with normal saline prior to procedure #1 being performed. PROCEDURE #3: Sharp debridement of the right sub-third/fourth metatarsal head ulcer, less than 20 sq cm down to and including the subcutaneous tissue layer with a #15 blade was performed. The patient tolerated this procedure well. The patient is going to continue antibiotic and a Band-Aid to the sub- third/fourth metatarsal head area as it is slightly open. This is only pinpoint in size, approximately 0.1 x 0.1 x 0.1 cm deep. The patient will leave dressings clean, dry and intact except for a single dressing change that she will do the end of this week, taking the dressings down to the Hydrofera Blue and leaving it there, and then will repeat the normal 4 x 4 gauze, Kerlix and CircAid wraps. She will then see Fiona on Thursday and the following week, and then on Thursday the week after she will also see Fiona, and then will see me on the 09 of November, which is a Thursday. We will see the patient in about two weeks for a visit with me, and she will see Jaimes beginning next week on Thursday. She knows that I will be out of town this coming Thursday through the entire next week and to report to the emergency room or primary care physician immediately if there are any concerns. PRESLEY Castro/augusto Job #[id number] DEMETRIS
== END 2019-10-25 08:40 ==
LOC: POD 08:08
PROVIDERS: ATTEND Podiatrist Foot & Ankle Surgery
DX: I87.2 Venous insufficiency (chronic) (peripheral) (principal); L89.899 Pressure ulcer of other site, unspecified stage; M20.42 Other hammer toe(s) (acquired), left foot; M20.41 Other hammer toe(s) (acquired), right foot
CPT/HCPCS: 11042; 11045; 99213; G0463; A4554

== ENCOUNTER 2019-11-10 11:42 | Outpatient (CLI) | payer MEDICARE, OTHER ==
--- NOTE | 2019-11-11 17:25 | OP Clinic Progress Note ---
DATE OF VISIT: 11/10/2019 SUBJECTIVE: Michelle is a 69-year-old female presenting to the clinic today for follow-up of a venous insufficiency ulcer on the right lower leg as well as a pressure ulcer that has reportedly had some issues while I was out of town causing some redness, pain and was being monitored while I was away. The patient states she is having a little bit more pain still under the right foot, however, that it is better than it was previously. She believes that the leg ulcer is improving. She is using the CircAid wrap and leaving the dressings intact. She has been having dressing changes by Star the last couple visits while I was out of town. The patient does not admit to any fevers, nausea, vomiting, shortness of breath or chest pain. She is otherwise doing well and ready for another graft if possible. OBJECTIVE: Vitals: Temperature 97.9 degrees Fahrenheit, heart rate 71, respiration rate 16, blood pressure 112/73. O2 saturation is 91% on room air. Vascular: Palpable DP and PT pulses, right foot. Capillary refill time is less than 3 seconds to the toes of the right foot. There is still very mild edema noted in the right foot. Dermatologic: The right lower leg anteromedial ulcer is still present at this time with a fair amount of yellow slough that was debrided today to a slightly bleeding and mixed granular and fibrous base. This today measured at 5.3 x 1.7 x 0.1 cm deep. This is improved from last week where it measured 5.5 x 1.9 x 0.1 cm deep. The patient had a little bit of hyperkeratotic/scabbing on the edges of the wound today. There is no erythema, warmth, abnormal drainage or other signs of infection. The right sub third/fourth metatarsal head area has hyperkeratosis with obvious base/gapping underneath the tissue from previous bulla that must have developed while I was out of town. This was debrided and excess skin was removed revealing a superficial wound that was larger than previous and a deep wound that is central measuring at 0.35 x 0.3 x 0.1 cm deep. The rest of it was more of a superficial lesion that should heal easily and quickly. The patient does not have any erythema at this time nor significant warmth or any other drainage or signs of infection at this time. There was no abnormal drainage today with removal of the overlying loose skin. Musculoskeletal: There is still some pain on palpation under the sub third/fourth metatarsal head area, right foot. There is no pain with debridement of the right lower leg ulcer. There is significant digital deformity with hammertoe contractures with dorsiflexion at the metatarsophalangeal joint of the first, second, third and fifth toes. 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 The right sub third/fourth metatarsal head area is very prominent plantarly. The entire forefoot is very prominent plantarly as well and I am considering that we may need to do something about this soon once we get the leg ulcer improved, possibly. There are no other gross abnormalities noted, right foot. Neurologic: Light touch sensation is diminished to the toes, right foot. ASSESSMENT AND PLAN: 1. Venous insufficiency ulcer, right lower extremity. 2. Pressure ulcer, right sub third/fourth metatarsal head, stage III. 3. Venous insufficiency bilateral extremities. 4. Hammertoe contractures bilaterally. PROCEDURE #1: After appropriate debridement and cleansing, an EpiFix graft 2.0 x 4.0 cm graft 100% of it was applied to the right lower extremity ulcer base and was wet with normal saline and gauze. At this time it was covered with Adaptic and then Hydrofera Blue, 4x4 gauze, Kerlix and her CircAid wraps. The patient tolerated the procedure well. PROCEDURE #2: Sharp debridement less than 20 sq cm of the right lower extremity venous insufficiency ulcer was performed down to and including subcutaneous tissue layer with a curette. Bleeding was controlled with pressure. The site was rinsed with a copious amount of normal saline, dried and then the graft was applied as mentioned up in procedure #1. PROCEDURE #3: Sharp debridement less than 20 sq cm down to and including the subcutaneous layer of the right foot sub third/fourth metatarsal head ulcer was performed today with a #15 blade. No bleeding really was present and the site was rinsed with a copious amount of normal saline, dried and dressed with triple antibiotic ointment and a Band-Aid. The patient is to continue using triple antibiotic ointment and a Band-Aid to this site and is to switch to a surgical shoe. As the patient switches to a surgical shoe that has already been offloaded by myself under the sub third/fourth metatarsal head we will see if this continues to improve the patients situation. She obviously opened up again even though she is using her appropriate shoe inserts that are offloaded for that site. This tells me that if we can get this healed we will likely need to do surgery before we can put her back into one of her shoes again with appropriate offloading. We may need to do a kim metatarsal head resection or try and just address the single area that is a problem. If we do a kim metatarsal head resection we will continue to consider a first metatarsophalangeal joint fusion as well. The patient understands that we will continue local wound care at this time and she needs to be back in a surgical shoe at all times at home. She understands this and will do so. She will continue her nursing visits and will plan to see Star on Thursday next week in the [facility] and then I will see her on again and then I will likely see her on Thursday the following week, the , and then likely we will not see her again until a week later for a nursing visit on Thursday and then me on , December 01. The patient will understand this as we discussed this further and we will see her at this time in 1 week for a visit with me. Sidney Dugan D.P.M. Zhanna Job #[id number] MTDD
== END 2019-11-10 12:12 ==
LOC: POD 11:42
PROVIDERS: ATTEND Podiatrist Foot & Ankle Surgery
DX: I87.2 Venous insufficiency (chronic) (peripheral) (principal); L89.893 Pressure ulcer of other site, stage 3; M20.41 Other hammer toe(s) (acquired), right foot; M20.42 Other hammer toe(s) (acquired), left foot
CPT/HCPCS: 11042; 11045; 99213; G0463; A4554

== ENCOUNTER 2019-11-17 13:56 | Outpatient (CLI) | payer MEDICARE, OTHER ==
--- NOTE | 2019-11-21 17:05 | OP Clinic Progress Note ---
DATE OF VISIT: 11/17/2019 SUBJECTIVE: Michelle is a 69-year-old female who presented to clinic today for followup of venous insufficiency ulcer right lower extremity as well as bilateral venous insufficiency and hammertoe contractures. The patient states she is doing well and has been using her CircAid wrap at home. She does not admit to any fevers, chills, nausea, vomiting, shortness of breath or chest pain. She did not think she would be able to come in and see us this past Thursday as she had THE snow and knew that Star was not there and was not sure how she would be able to be seen. She was notified today that she could have come in still and been seen by Naida in outpatient for a nursing visit. OBJECTIVE: Vitals: Temperature 97.3 degrees Fahrenheit, heart rate 69, respiration rate 18, blood pressure 143/88. O2 saturation is 98% on room air. Vascular: Palpable DP and PT pulses, right foot. Capillary refill time is less than 3 seconds to the toes of the right foot. There is no real significant edema noted, right foot. Dermatologic: The right lower leg anteromedial ulcer today has a much beefy red, granular presence in base after debridement of biofilm that was present first. The edges on the skin has a little bit more red irritation that happens occasionally and then goes away on its own. We will see how this continues to improve. There is no signs of erythema or malodor or purulence or abnormal drainage noted or abnormal warmth. The wound today on the leg is measuring 5.4 x 2.2 x 0.1 cm deep. This seems to be slightly bigger than last week for some reason, which measured 5.3 x 1.7 x 0.1 cm. The wound base looks much better, so we will give this another try next week and see how it is doing. The right foot sub third/fourth metatarsal head ulcer still has a little bit of macerated tissue. This was debrided from the amount of callus that was present and still has a small open lesion measuring 0.3 x 0.2 x 0.1 cm deep. This was debrided ulcer today. There are no other skin abnormalities or concerns at this time. Musculoskeletal: There is pain on palpation at the sub third/fourth metatarsal head area. There is no pain with debridement of the right anteromedial lower leg. There is significant digital contracture still with hammertoe contractures having dorsiflexion at the metatarsophalangeal joint of the first, second, third and fifth toes of the right foot. 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 The sub third/fourth metatarsal head area is quite prominent still on the right foot. The entire forefoot is plantarly prominent also. Neurologic: Light touch sensation is diminished to the toes, right foot. The left foot was not visualized today. ASSESSMENT AND PLAN: 1. Venous insufficiency ulcer right lower extremity. 2. Pressure ulcer sub third/fourth metatarsal head stage 3. 3. Venous insufficiency bilateral lower extremities. 4. Hammertoe contractures bilaterally. PROCEDURE #1: Sharp debridement of the right lower leg ulcer less than 20 square cm down to and including subcutaneous tissue layer was performed with a curette today. The patient had very minimal bleeding, which was controlled with pressure. This was rinsed with a copious amount of normal saline and dried and today dressings were applied consisting of Adaptic, OptiCell Ag, 4 x 4 gauze, Kerlix and CircAid wraps. I have decided to take a short five-day break from using a graft to give it a change in treatment which sometimes helps the wound to healing again. We will plan on Thursday to go ahead and do the EpiFix graft again and we will see how it is doing after that when we see her a week later. If we do the graft now she will only have it on for five days, which I prefer to give her a full week. PROCEDURE #2: Sharp debridement of the right sub third/fourth metatarsal head ulcer less than 20 square cm down to and including subcutaneous tissue layer with #15 blade was performed today. Bleeding was minimal and controlled with pressure. This was rinsed with a copious amount of normal saline and dressed with Triple Antibiotic Ointment and a Band-Aid and she is to continue doing antibiotic ointment and a Band-Aid daily there. She is healing much better on this sub third/fourth metatarsal head ulcer as she has now been in a surgical shoe lately. We will need to look at addressing and changing her inserts soon in order to give her the best chance of healing. We will look at that likely on Thursday or in the new year to see if we can work on getting her diabetic shoes and inserts adjusted to offload better than they are doing now. She had healed this already once before and was placed in her shoe and it got worse again and therefore we need to adjust the inserts that she has. The patient now understands this. The patient will return to clinic on November 21 and we will likely do an EpiFix graft at that time after taking this five-day break, hopefully waking up the wound to continue improving again. I will say that the wound overall has much improved base and is improving overall. The patient has no other questions or concerns and we will see her on Thursday. Sidney Dugan D.P.M./Accutyprachel [id number] /mab MTDD
== END 2019-11-17 14:26 ==
LOC: POD 13:56
PROVIDERS: ATTEND Podiatrist Foot & Ankle Surgery
DX: M20.42 Other hammer toe(s) (acquired), left foot (principal); M20.41 Other hammer toe(s) (acquired), right foot; I87.2 Venous insufficiency (chronic) (peripheral); L89.893 Pressure ulcer of other site, stage 3
CPT/HCPCS: 11042; 11045; 99213; G0463; A4554

== ENCOUNTER 2019-11-21 10:40 | Outpatient (CLI) | payer MEDICARE, OTHER ==
--- NOTE | 2019-11-22 16:50 | OP Clinic Progress Note ---
DATE OF VISIT: 11/21/2019 SUBJECTIVE: Michelle is a 69-year-old female presenting to clinic today for follow-up of a right lower leg venous insufficiency ulcer as well as right sub third/fourth metatarsal head stage 3 ulcer that we have been watching. The ulcer under the foot has been present before and we were able to get healed and then put her back in a regular shoe with appropriate offloading inserts that she already had and this worsened and opened again and we have been working on it again for a few weeks now. The patient is using the surgical shoe and is having much less pain at the site under her right foot. She also states that she has not touched the dressing since we saw her on last week and there is obviously increased drainage today. She does not admit to any fevers, chills, nausea, vomiting, shortness of breath or chest pain. She does admit to a SUL[employer]GY [employer] BE[employer]DRY [employer]ERGY. She was able to give u an updated list of her medications. OBJECTIVE: Vitals: Temperature 98.3 degrees Fahrenheit, heart rate 76, respiration rate 16, blood pressure 155/87. O2 saturation is 94% on room air. Vascular: Palpable DP and PT pulses, right foot. Capillary refill time is less than 3 seconds to the toes of the right foot. There is mild edema noted, right foot. Dermatologic: The right sub third/fourth metatarsal head ulcer appears to be drying out and is very small measuring 0.1 x 0.1 x 0.1 cm deep. There is no erythema or any real irritation to the site as there was last week. There are no signs of infection or drainage noted. The right anteromedial leg ulcer is still present today and there is quite a bit of drainage and a much less healthy base today. There is a significant amount of fibrin and slough and surrounding erythema when the dressings were removed on the skin around the wound edge. There is some induration as well. This was moderate as we let her have some time with the EMLA topically on the wound. This erythema seemed to go away almost entirely. Due to the appearance of the wound, however, we decided to go ahead and go forward with treatment as a cellulitis. There is still some warmth around the edges of the wound slightly. The site was debrided to a base that hardly bleeds. The right lower anteromedial leg ulcer is measuring today at 5.8 x 2.3 x 0.2 cm deep. There were no other gross abnormalities noted. Musculoskeletal: There are significant digital contractures noted bilateral feet with prominent plantar metatarsal heads, right foot. Neurologic: Light touch sensation is diminished to the toes bilaterally. ASSESSMENT AND PLAN: 1. Mild cellulitis, right lower extremity venous insufficiency ulcer. 2. Venous insufficiency ulcer, right lower extremity. 3. Venous insufficiency bilateral lower extremities. 4. Pressure ulcer, right sub third/fourth metatarsal head, stage 3. 5. Hammertoe contractures bilaterally. PROCEDURE #1: Sharp debridement of the right lower extremity ulcer down to and including subcutaneous tissue layer with a curette was performed less than 20 sq cm today. There was mild bleeding if any, which was controlled with pressure. The site was rinsed with a copious amount of normal saline and then dried and dressed with Santyl, Adaptic, Hydrofera Blue, 4x4 gauze, Kerlix and a CircAid wrap. The patient was given a prescription for doxycycline 100 mg and is to take 2 today and then 1 daily for 9 days after that. The patient understands this and knows that we are giving it to her somewhat as a precaution due to the appearance of the wound today. We will hold off on any sort of graft application in case she is at an early stage of cellulitis. The patient will do her own dressing changes on Thursday and then Thursday with the materials we gave her and she will then return to the [facility] in a week from now to see Mark for a nursing visit and then on , 12/01/2019 for a visit in the outpatient clinic. Her 2 dressing changes will consist of Adaptic, Hydrofera Blue, 4x4 gauze, Kerlix and a CircAid wrap. She has been doing dressing changes frequently at home and will continue to do so. Next week will also plan on trying to see if we can get her inserts altered or new ones in order to offload that sub third/fourth metatarsal head area next time. The patient understands that is the plan and she would like to do anything to avoid surgery. She has already opened this once after getting put back in a regular shoe when it had healed and then it opened up again. She understands we need to try and adjust the shoes in order to make them protect her feet better. We will do this and if we have issues again then we will definitely need to go forward with surgery. We will continue to follow the right sub third/fourth metatarsal head ulcer which was left alone today except for putting antibiotic and a Band-Aid on it which she is to continue to do daily. It is looking great and we will see how it looks next week. It should be noted that we were able to go through her medications that were on her chart and confirm that there should be no issues with putting her on doxycycline. She also denied any kidney issues at all. At the very end the patient did give us an updated list that she realized she could find on line with the [employer] justin. She was encouraged to bring this medication to her doctor appointment she has later today with her primary care doctor and make sure it does not have any issues with the medicine that they have her on, nor any updated medication that may happen today as they are adjusting things for her. She will check with them. Sidney Dugan D.P.M. Zhanna Job#: [id number] MTDShikha
== END 2019-11-21 11:10 ==
LOC: POD 10:40
PROVIDERS: ATTEND Podiatrist Foot & Ankle Surgery
DX: I87.2 Venous insufficiency (chronic) (peripheral) (principal); L89.893 Pressure ulcer of other site, stage 3; M20.42 Other hammer toe(s) (acquired), left foot; M20.41 Other hammer toe(s) (acquired), right foot
CPT/HCPCS: A4554

== ENCOUNTER 2019-12-01 11:18 | Outpatient (CLI) | payer MEDICARE, OTHER ==
--- NOTE | 2019-12-05 09:21 | OP Clinic Progress Note ---
DATE OF VISIT: 12/01/2019 SUBJECTIVE: Michelle is a 69-year-old female presenting to clinic today for follow-up of venous insufficiency ulcer on the right lower extremity as well as a pressure ulcer under the sub third/fourth metatarsal head right foot. The patient has significant hammertoe contractures and we have been treating this wound on the sub third/fourth metatarsal head area and the lower right leg for quite some time now. The patient most recently has been away from using the grafts and has been using CircAid wraps and is seeming to continue to have swelling and the wound seems to be getting larger now. We left her off the grafts for a bit as she had some suggestion of possible cellulitis recently and was placed on doxycycline and she took that appropriately. She now is better and is ready to get back on the graft again. She does not admit to any fevers, chills, nausea, vomiting, shortness of breath or chest pain. The patient admits that she fell on the way in to outpatient clinic today but denies hitting her head or hurting anywhere. She does admit that she has some hip pain but that has always been there. OBJECTIVE: Vitals: Temperature 98.9 degrees Fahrenheit, heart rate 63, respiration rate 16, blood pressure 182/88. O2 saturation is 94% on room air. Vascular: Palpable DP and PT pulses, right foot. Capillary refill time is less than 3 seconds to the toes of the right foot. There is moderate edema still noted in the right foot and lower leg. Dermatologic: The right sub third/fourth metatarsal head ulcer today has a minor amount of hyperkeratotic tissue that was debrided today. This still is slightly open and was debrided down to and including subcutaneous tissue layer and there is no erythema, purulence or malodor noted. There was mild bleeding which was controlled with pressure and this was rinsed with normal saline. This was then dressed with triple antibiotic ointment and a Band-Aid. The patient is to continue doing this daily. The right lower leg venous insufficiency ulcer is present today and with quite a bit of yellow goop and fibrous tissue that is present, with lots of bioburden. This was debrided today to a more appropriate beefy granular base with a little bit of fibrous tissue still that I could not get out. This was rinsed with a copious amount of normal saline. There is no erythema, malodor or abnormal drainage or purulence noted around this wound. There is mild peeling skin behind the wound in the posterior aspect of the right and we will try and begin using lotion at upcoming visits but we do not have any today. The right sub third/fourth metatarsal head ulcer is measuring today at 0.3 x 0.2 x 0.1 cm deep. This is seeming to be slightly worse than previous where it measured 0.1 x 0.1 x 0.1 cm deep. The right anteromedial leg ulcer is measuring today at 6.7 x 3.0 x 0.3 cm deep. This is worse than previous where it measured 5.8 x 2.3 x 0.2 cm deep. There are no other skin abnormalities or concerns. Musculoskeletal: There are significant digital contractures noted in the right foot as well as the left foot but we did not visualize the left, and prominent plantar metatarsal heads, right foot. Neurologic: Light touch sensation is diminished to the toes bilaterally. ASSESSMENT AND PLAN: 1. Mild cellulitis from previous resolved. 2. Venous insufficiency ulcer, right lower extremity. 3. Pressure ulcer, right sub third/fourth metatarsal head. 4. Venous insufficiency, bilateral lower extremities. 5. Hammertoe contractures, bilateral lower extremities. Based on the worsening of the wound and the increased swelling we decided to switch back to compression 4-layer wraps rather than the CircAids. PROCEDURE #1: After appropriate debridement EpiFix 2.0 x 4.0 graft was applied, 100% of the graft, to the right lower leg anteromedial ulcer. This was then covered in Adaptic, Hydrofera Blue, 4x4 gauze and Kerlix. PROCEDURE #2: Sharp debridement of the right lower extremity ulcer was performed down to and including subcutaneous tissue layer of less than 20 sq cm with a curette today. This was rinsed with a copious amount of normal saline and then had a graft applied as mentioned in #1. PROCEDURE #3: Sharp debridement of the right sub third/fourth metatarsal head ulcer down to and including the subcutaneous tissue layer less than 20 sq cm with a #15 blade was performed today. Hemostasis was obtained with pressure. The site was rinsed with normal saline, dried and had triple antibiotic ointment and a Band-Aid applied. PROCEDURE #4: A 4-layer compression wrap was applied to the right lower extremity per normal protocol. The patient is to leave this clean, dry and intact until her next nursing visit. Return to clinic in 2 weeks. She will have a nursing visit this next Thursday, and the following Thursday where they will remove dressings down to the Hydrofera Blue and leave that intact on Thursday and then next week they will remove all of the dressings and then again remove all the dressings and change them again the following Thursday. I will see her then again the following , which is 2 weeks from today. The patient has no further questions or concerns. She is not concerned about her fall. We adjusted her surgical shoe today to offload the area a little bit better. We will consider surgical treatment if we cannot get this healed or if we get this healed and she would like to go ahead and try and do our best to limit the risk of it opening again on the right foot. Ashley Castro Job#: [id number] MTDShikha
== END 2019-12-01 11:58 ==
LOC: POD 11:18
PROVIDERS: ATTEND Podiatrist Foot & Ankle Surgery
DX: I87.2 Venous insufficiency (chronic) (peripheral) (principal); M20.41 Other hammer toe(s) (acquired), right foot; M20.42 Other hammer toe(s) (acquired), left foot; L89.899 Pressure ulcer of other site, unspecified stage
CPT/HCPCS: 11042; 11045; 29581; 99213; G0463; A4554

== ENCOUNTER 2019-12-05 09:42 | Outpatient (CLI) | payer MEDICARE, OTHER | END 2019-12-05 10:05 | disposition home or self-care (01) | LOC: POD 09:42 → OUT 10:05 | PROVIDERS: ATTEND Podiatrist Foot & Ankle Surgery | DX: Z48.00 Encounter for change or removal of nonsurgical wound dressing (principal) ==

== ENCOUNTER 2019-12-08 11:09 | Outpatient (CLI) | payer MEDICARE, OTHER | END 2019-12-08 11:50 | disposition home or self-care (01) | LOC: OUT 11:09 | PROVIDERS: ATTEND Podiatrist Foot & Ankle Surgery | DX: Z48.00 Encounter for change or removal of nonsurgical wound dressing (principal) ==

== ENCOUNTER 2019-12-12 11:33 | Outpatient (CLI) | payer MEDICARE, OTHER ==
--- NOTE | 2019-12-13 12:30 | OP Clinic Progress Note ---
DATE OF VISIT: 12/12/2019 SUBJECTIVE: Michelle is a 69-year-old female presenting to clinic today for follow-up of venous insufficiency ulcer on the right lower extremity and a pressure ulcer on the lower right sub third/fourth metatarsal head. The patient also has significant hammertoe contractures which are causing increasing pressure underneath the forefoot, especially on the right foot. The patient had a recent cellulitis which resolved on doxycycline at her most recent exam. She most recently had a graft applied and was seen by nursing visits while I was off this last week and is here for follow-up for nursing visit which we switched to a doctors visit to check on her as she stated she was having a lot of pain underneath the right foot. The patient does not admit to any other issues but states that she is having a lot of pain where the wound is noted under the right foot. She does not admit to any other issues over the last week and feels that her legs are looking better and skinnier with less fluid retention. She is taking the water pill she is supposed to, and she is doing the 4-layer compression wraps. The patient does not admit to any fevers, chills, nausea, vomiting, shortness of breath or chest pain. OBJECTIVE: Vitals: Temperature 98.0 degrees Fahrenheit, heart rate 64, respiration rate 16, blood pressure 113/72. O2 saturation is 93% on room air. Vascular: Palpable DP and PT pulses, right foot. Capillary refill time is less than 3 seconds to the toes of the right foot. There is almost no edema noted now in the right foot and lower leg. Dermatologic: The right sub third/fourth metatarsal head ulcer today was debrided and is measuring today at 0.4 x 0.2 x 0.3 cm deep. This is worse than last week which was 0.3 x 0.2 x 0.1 cm deep. We also noticed that in her surgical shoe she had a little bit of bleeding showing pressure on the padding just distal to where the offloaded [place] was located, thus necessitating an adjustment of the padding. She does not have any real erythema or significant warmth or any abnormal drainage noted. There is no purulence or malodor. The right lower leg venous insufficiency ulcer is present today with a very mild amount of bioburden which was debrided with a curette today. There is no erythema, malodor, purulence or signs of infection or abnormal warmth. This is measuring today at 6.6 x 2.5 x 0.2 cm deep. This is improved from last week where it measured 6.7 x 3.0 x 0.3 cm deep. This is going back the right direction and the area around this lesion of the skin is much healthier and without any signs of irritation. There are no other concerns or skin abnormalities or signs of infection or open lesions. Musculoskeletal: Significant digital contractures noted right foot causing very prominent plantar metatarsal heads, especially on the right foot. There is pain on palpation noted at the sub third/fourth metatarsal head area where the lesion is noted. 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 Neurologic: Light touch sensation is diminished to the toes bilaterally. ASSESSMENT AND PLAN: 1. Venous insufficiency ulcer, right lower extremity. 2. Pressure ulcer, right sub third/fourth metatarsal head. 3. Foot deformity, right foot. 4. Hammertoes, right foot. PROCEDURE #1: EpiFix graft application 100% was applied to the right lower extremity at the right leg ulcer after appropriate debridement mentioned below. This was moistened with normal saline, and a gauze and then dressed with Adaptic, Hydrofera Blue, 4x4 gauze, and Kerlix. PROCEDURE #2: Prior to graft application, sharp debridement less than 20 sq cm down to and including the subcutaneous tissue layer was performed to the right lower leg venous insufficiency ulcer with a curette. Bleeding was mild/minimal and controlled with pressure. This was rinsed with a copious amount of normal saline. This was then dressed as described above. PROCEDURE #3: Sharp debridement less than 20 sq cm of the right sub third/fourth metatarsal head pressure ulcer down to and including the subcutaneous layer with a #15 blade was performed. Again, mild bleeding was controlled with pressure. This was dressed with Adaptic, Hydrofera Blue, 4x4 gauze and 2-inch Al[place]. PROCEDURE #4: Four-layer compression wrap was applied to the right lower extremity. The patient understands that we are going to continue wound care as above. She had some improvement today. We will have her see Star for a nurse visit on instead of me since I saw her today instead of based on her concern for pain. We will have her then see Star on Thursday next week and see me on that week. We discussed with the patient that she continues to struggle with improvement on the right plantar foot wound and with a history of infection we may warrant an MRI to confirm no signs of osteomyelitis in this area as it is having such a hard time healing. I told her that we may or may not find any results of osteomyelitis or evidence suggestive of osteomyelitis but that it is something we can check to be safe. I told her that we likely are just dealing with a pressure issue but it would be safest to check as this is worsening despite our efforts to offload. She agrees and would like to get the MRI obtained. We will send an order and she will get that done as soon as possible. We will follow up on my next visit next week for the MRI that she hopefully has obtained at that point. The patient will need continued close care and wound care. The patient will continue using the 4-layer compression wraps and having the dressings changed by us I believe on Mondays and . We discussed with the patient that she likely needs surgical evaluation and possible treatment elsewhere because of the wound that we are having such a difficult time treating. I believe that as our hospital situation is currently unable to do surgery that she would benefit from being referred to another provider to discuss possible surgical care. The patient understands this. She would like to get an MRI first and we will review that and likely make recommendations based on that of probably needing surgery to address this deformity. I suggested that she may obtain a panmetatarsal head resection with first metatarsophalangeal joint fusion versus they may do something different. She understands that it is surgeon preference. The patient has no further questions or concerns and we will see her on for a nursing visit and then again on Thursday for a nursing visit and then with me on next week for a physician visit. The MRI will be sent and she will get that organized MARGARITA. Of note, the EpiFix used today was a 2.0 x 4.0 cm graft. The bar code at the bottom was [id number] and expires 07/31/2024 with a reorder# of [id number]. Actually, based on most recent labs which were from still a little while ago there was no obvious significant kidney dysfunction, so I believe she should be fine getting an MRI with and without contrast. We will check with the patient to make sure if there are any other concerns with metal in the body or claustrophobia, etc. with obtaining this order. Sidney Dugan D.P.M. Zhanna Job#: [id number] MTDD
== END 2019-12-12 12:03 ==
LOC: OUT 11:33 → POD 11:33
PROVIDERS: ATTEND Podiatrist Foot & Ankle Surgery
DX: I87.2 Venous insufficiency (chronic) (peripheral) (principal); L89.899 Pressure ulcer of other site, unspecified stage; M21.6X1 Other acquired deformities of right foot; M20.41 Other hammer toe(s) (acquired), right foot
CPT/HCPCS: 11042; 29581; G0463